=== PATIENT | female | born 1955 | race Caucasian/White ===

== ENCOUNTER 2022-09-04 11:38 | Emergency (ER) | payer OTHER ==
--- OUTSIDE RECORDS SUMMARY | 2022-09-04 11:42 | XMS REPORT | Continuity of Care Document ---
:1955 Author Organization [facility] t Address [address] [place] [address] [place] [id number] Care Team Providers Name Role Phone GUICHO JOE Primary Care Physician Unavailable EDWIN PALOMINO Attending Clinician Unavailable LUIS A CATES Attending Clinician Unavailable DEISY JUÁREZ Attending Clinician Unavailable 39, HOLTER Attending Clinician Unavailable YOEL HANNAH Attending Clinician Unavailable MD MATEUSZ Attending Clinician Unavailable LAB90 Attending Clinician Unavailable SHARRI CHAND Attending Clinician Unavailable LEONOR DOWNEY Attending Clinician Unavailable [facility] Attending Clinician Unavailable [facility]39 Attending Clinician Unavailable ISH PITTS Attending Clinician Unavailable MELANY PARDO Attending Clinician Unavailable Ferd SLAUGHTER-CEdwin Attending Clinician TAWANNA PETERSEN Attending Clinician Unavailable DELLA KUMAR Attending Clinician Unavailable Moira Marroquin PT Attending Clinician Unavailable Della Kumar MD Attending Clinician Swati Puri PTA Attending Clinician Unavailable Martha Villalba PTA Attending Clinician Unavailable ESTELLE LANCE Attending Clinician Unavailguerrero norton Payers Payer Name Policy Type Policy Number Effective Date Expiration Date S mariiamagdalena REY [employer] 7 [id number] 2021 00:00:00 PLAN HMO CIGNA 2 [id number] 2020 00:00:00 CIGNA II [id number] 2015 00:00:00 Problems Condition Condition Condition Status Onset Resolution Last Treating Co mments Source Name Details Category Date Date Treatment Clinician Date Well adult Well adult Disease Active K callie exam exam 1-18 Seybold 00:00: - 00 Externa l Anxiety Anxiety Disease Active Estelle 1-18 Seybold 00:00: - 00 Externa l Prediabete Prediabete Disease Active K miriamy s s 1-18 Seybold 00:00: - 00 Externa l PVD PVD Disease Active Estelle (periphera (periphera 1-18 Se ybold l vascular l vascular 00:00: - disease) disease) 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 l Bilateral Bilateral Disease Active 2021-02 Darrin sey leg leg 0-24 Seybold numbness numbness 00:00: - 00 Externa l Dermatitis Dermatitis Disease Active 2021-02 K elsey of both of both 0-24 Seybold ear canals ear canals 00:00: - 00 Externa l Chronic Chronic Disease Active [facility] bilateral bilateral 2-08 it[facility] of low back low back 00:00: [place] pain pain 00 [facility] Decreased Decreased Disease Active Uni vers strength strength 2-08 ity of of lower of lower 00:00: [place] extremity extremity 00 Medi corrine Branch Abdominal Abdominal Disease Active Uni vers weakness weakness 2-08 ity of 00:00: [place] 00 [facility] Right hip Right hip Disease Active 2020-02 Darrin sey pain pain 1-15 Seybold 00:00: - 00 Externa l Osteopenia Osteopenia Disease Active 2020-02 K elsey of spine of spine 0-25 Seybol d 00:00: - 00 Externa l Bone pain Bone pain Disease Active 2020-02 Darrin sey 0-25 Seybold 00:00: - 00 Externa l Nausea Nausea Disease Active 2020-02 Estelle 0-25 Seybold 00:00: - 00 Externa l B12 B12 Disease Active 2020-02 Estelle deficiency deficiency 0-25 Se ybold 00:00: - 00 Externa l Vitamin D Vitamin D Disease Active Darrin sey deficiency deficiency 9-27 Se ybold 00:00: - 00 Externa l GERD GERD Disease Active Estelle (gastroeso (gastroeso 9-24 Se ybold phageal phageal 00:00: - reflux reflux 00 Externa disease) disease) l IBS IBS Disease Active Estelle (irritable (irritable 11-19 Se ybold bowel bowel 00:00: - syndrome) syndrome) 00 Exte rna l Abnormal Abnormal Disease Active Kelse y mammogram mammogram 11-19 Seyb old 00:00: - 00 Externa l Migraine Migraine Disease Active Kelse y 11-19 Seybold 00:00: - 00 Externa l Degenerati Degenerati Disease Active Overview : Estelle ve disc ve disc 11-19 Formattin Vignesh ld disease at disease at 00:00: g of this - L5-S1 L5-S1 00 note Externa level level might be l different from the original. L5 Allergies, Adverse Reactions, Alerts Allergy Allergy Status Severity Reaction(s) Onset Inactive Treating Comm ents Source Name Type Date Date Clinician NO KNOWN Drug Active Univers ALLERGIE Class ity of S [facility] Social History Social Habit Start Date Stop Date Quantity Comments Source Exposure to Not sure Estelle de leon SARS-CoV-2 (event) History SDOH Estelle jackson - Alcohol Frequency Externa l History SDOH Estelle jackson - Alcohol Std External Drinks History SDOH Estelle jackson - Alcohol Binge External Alcohol intake 2022-04-05 2022-04-05 Estelle givens - 00:00:00 00:00:00 External Alcohol Comment 2022-03-15 2022-03-15 occasionally Estelle Jose - 00:00:00 00:00:00 External Education 2022-03-15 2022-03-15 13 Estelle Jose - 00:00:00 00:00:00 External Tobacco use and 2020-11-19 2020-11-19 Smokeless tobacco Ke jeremías Jose - exposure 00:00:00 00:00:00 non-user External Sex [birth year] [facility] 00[facility]00 00:00:00 [facility] Smoking Status Start Date Stop Date Source Never smoked tobacco Estelle addison - External Medications Ordered Filled Start Stop Current Ordering Indication Dosage Frequency Signature Comments Components Source Medication Medication Date Date Medication? Clinician (SIG) Name Name Celecoxib Yes [id number] 200mg Take 1 Estelle 200 MG oral 1-25 capsule Seybo ld Capsule 00:00: (200 mg - 00 total) by Externa mouth 2 l times daily Pantoprazol 2022-0 Yes [id number] 40mg QD Take 1 Estelle e Sodium 40 1-18 tablet (40 Se ybold MG oral 00:00: mg total) - Tablet 00 by mouth Externa Delayed daily as l Response needed buPROPion 2022-0 Yes [id number] 75mg Take 1 Ke lsey HCl 75 MG 1-18 tablet (75 Seyb old oral Tablet 00:00: mg total) - 00 by mouth Externa daily l Gabapentin 2022-0 Yes [id number] 200mg QD Take 2 Estelle 100 MG oral 1-18 capsules Seyb old Capsule 00:00: (200 mg - 00 total) by Externa mouth l nightly as needed Pantoprazol 2022-0 Yes [id number] 40mg QD Take 1 Estelle e Sodium 40 1-18 tablet (40 Se ybold MG oral 00:00: mg total) - Tablet 00 by mouth Externa Delayed daily as l Response needed buPROPion 2022-0 Yes [id number] 75mg Take 1 Ke lsey HCl 75 MG 1-18 tablet (75 Seyb old oral Tablet 00:00: mg total) - 00 by mouth Externa daily l Gabapentin 2022-0 Yes [id number] 200mg QD Take 2 Estelle 100 MG oral 1-18 capsules Seyb old Capsule 00:00: (200 mg - 00 total) by Externa mouth l nightly as needed Pantoprazol 2022-0 2022- No [id number] 40mg QD Take 1 Estelle e Sodium 40 1-18 01-18 tablet (40 S eybold MG oral 00:00: 00:00 mg total) - Tablet 00 :00 by mouth Externa Delayed daily as l Response needed Multiple 2022-0 2022- No Take by Kelse y Vitamins-Mi 1-06 26-05 mouth Seybol d nerals 10:28: 00:00 - (Womens 50+ 52 :00 Externa Multi l Vitamin/Min ) oral Tablet NALTREXONE 2022-0 2022- No 1.5mg Take 1.5 K elsey HCL OR 105 -05 mg by Seybold 10:28: 00:00 mouth - 43 :00 Externa l Gabapentin 2022- Yes [id number] 100mg QD Take 1 Estelle 100 MG oral 1-05 capsule Seybo ld Capsule 00:00: (100 mg - 00 total) by Externa mouth l nightly as needed Celecoxib Yes [id number] 200mg QD Take 1 Estelle 200 MG oral 1-05 capsule Seybo ld Capsule 00:00: (200 mg - 00 total) by Externa mouth l daily as needed for pain Celecoxib Yes [id number] 200mg QD Take 1 Estelle 200 MG oral 1-05 capsule Seybo ld Capsule 00:00: (200 mg - 00 total) by Externa mouth l daily as needed for pain Gabapentin 2022- No [id number] 100mg QD Take 1 Estelle 100 MG oral 1-05 -18 capsule Seyb old Capsule 00:00: 00:00 (100 mg - 00 :00 total) by Externa mouth l nightly as needed Celecoxib 2021-02- No [id number] TAKE 1 Estelle 200 MG oral 2-27 01-05 CAPSULE BY S eybold Capsule 00:00: 00:00 MOUTH - 00 :00 TWICE A Externa DAY l Multiple 2021-02 Yes Take by Estelle Vitamins-Mi 2-16 mouth Seybold nerals 14:38: - (Womens 50+ 21 Externa Multi l Vitamin/Min ) oral Tablet NALTREXONE 2021-02 Yes 1.5mg Take 1.5 Ke lsey HCL OR 2-16 mg by Seybold 14:38: mouth - 21 Externa l Pantoprazol 2021-02 Yes [id number] 40mg Take 1 Estelle e Sodium 40 2-05 tablet (40 Se ybold MG oral 00:00: mg total) - Tablet 00 by mouth Externa Delayed daily l Response Pantoprazol 2021-02 Yes [id number] 40mg Take 1 Estelle e Sodium 40 2-05 tablet (40 Se ybold MG oral 00:00: mg total) - Tablet 00 by mouth Externa Delayed daily l Response Pantoprazol 2021-02- No [id number] 40mg Take 1 Estelle e Sodium 40 2-05 -18 tablet (40 S eybold MG oral 00:00: 00:00 mg total) - Tablet 00 :00 by mouth Externa Delayed daily l Response Celecoxib 2021-02 Yes [id number] TAKE 1 K elsey 200 MG oral 1-18 CAPSULE BY Se ybold Capsule 00:00: MOUTH 2 - 00 TIMES Externa DAILY. l Nitrofurant 2021-02 Yes [id number] 100mg Take 1 Estelle oin Monohyd 1-10 capsule Seybo ld Macro 00:00: (100 mg - (Macrobid) 00 total) by Exte rna 100 MG oral mouth 2 l Capsule times daily Nitrofurant 2021-02- No [id number] 100mg Take 1 Estelle oin Monohyd 1-10 01-05 capsule Seyb old Macro 00:00: 00:00 (100 mg - (Macrobid) 00 :00 total) by Exte rna 100 MG oral mouth 2 l Capsule times daily Multiple 2021-02 Yes Take by Estelle Vitamins-Mi 1-09 mouth Seybold nerals 16:24: - (Womens 50+ 06 Externa Multi l Vitamin/Min ) oral Tablet NALTREXONE 2021-02 Yes 1.5mg Take 1.5 Ke lsey HCL OR 1-09 mg by Seybold 16:24: mouth - 06 Externa l Pantoprazol 2021-02 Yes [id number] 40mg Take 1 Estelle e Sodium 40 1-09 tablet (40 Se ybold MG oral 00:00: mg total) - Tablet 00 by mouth Externa Delayed daily l Response Dicyclomine 2021-02 Yes [id number] 20mg Take 1 Estelle HCl 20 MG 1-09 tablet (20 Seyb old oral Tablet 00:00: mg total) - 00 by mouth Externa every 6 l (six) hours Amitriptyli 2021-02 Yes [id number] 10mg Take 1 Estelle ne HCl 10 1-09 tablet (10 Seyb old MG oral 00:00: mg total) - Tablet 00 by mouth Externa at bedtime l Alprazolam 2021-02 Yes [id number] .25mg QD Take 1 Estelle 0.25 MG 1-09 tablet Seybold oral Tablet 00:00: (0.25 mg - 00 total) by Externa mouth l nightly as needed for sleep Dicyclomine 2021-02 Yes [id number] 20mg Take 1 Estelle HCl 20 MG 1-09 tablet (20 Seyb old oral Tablet 00:00: mg total) - 00 by mouth Externa every 6 l (six) hours Amitriptyli 2021-02 Yes [id number] 10mg Take 1 Estelle ne HCl 10 -09 tablet (10 Seyb old MG oral 00:00: mg total) - Tablet 00 by mouth Externa at bedtime l Alprazolam 2021-02 Yes [id number] .25mg QD Take 1 Estelle 0.25 MG -09 tablet Seybold oral Tablet 00:00: (0.25 mg - 00 total) by Externa mouth l nightly as needed for sleep Dicyclomine 2021-02 Yes [id number] 20mg Take 1 Estelle HCl 20 MG -09 tablet (20 Seyb old oral Tablet 00:00: mg total) - 00 by mouth Externa every 6 l (six) hours Dicyclomine 2021-02- No [id number] 20mg Take 1 Estelle HCl 20 MG -10 27-18 tablet (20 Sey bold oral Tablet 00:00: 00:00 mg total) - 00 :00 by mouth Externa every 6 l (six) hours Amitriptyli 2021-02- No [id number] 10mg Take 1 Estelle ne HCl 10 -10 27-05 tablet (10 Sey bold MG oral 00:00: 00:00 mg total) - Tablet 00 :00 by mouth Externa at bedtime l Alprazolam 2021-02- No [id number] .25mg QD Take 1 Estelle 0.25 MG -10 27-05 tablet Seybold oral Tablet 00:00: 00:00 (0.25 mg - 00 :00 total) by Externa mouth l nightly as needed for sleep Duloxetine 2021-02- No [id number] TAKE 1 Estelle HCl 30 MG 0-28 11-09 CAPSULE BY Sey bold oral Cap DR 00:00: 00:00 MOUTH - Particles 00 :00 EVERY DAY Exter na l Nystatin-Tr 2021-02 Yes [id number] Apply to Estelle iamcinolone 0-24 71400 area twice S eybold [id number] 00:00: daily as - UNIT/GM-% 00 needed. Externa apply l externally Cream Gabapentin 2021-02 Yes [id number] Start 1 Estelle 100 MG oral 0-24 cap po qhs Se ybold Capsule 00:00: x 7d, then - 00 1 cap bid Externa x7d , then l 1 cap tid Celecoxib 2021-02 Yes [id number] 200mg Take 1 Estelle (CeleBREX) 0-24 capsule Seybol d 200 MG oral 00:00: (200 mg - Capsule 00 total) by Externa mouth 2 l times daily NEOMYCIN-PO 2021-02 Yes [id number] 2[drp] Place 2 Estelle LYMYXIN-HC, 0-24 [id number] drops into S eybold OTIC, 1 % 00:00: both ears - otic 00 3 times Externa Solution daily For l 7-10 day Azelastine 2021-02 Yes [id number] 1{spray Use 1 Estelle HCl 0.1 % 0-24 } spray in Seybol d nasal 00:00: each - Solution 00 nostril 2 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 Externa MAY REPEAT l DOSE X 1 AFTER 1 HOUR. DO NOT EXCEED MORE THAN 2 TABLETS IN A 24-HOUR PERIOD Sumatriptan 2021-02 Yes [id number] TAKE 1 TAB Estelle Succinate 0-22 AT THE Seybold 100 MG oral 00:00: ONSET OF - Tablet 00 MIGRAINE. Externa MAY REPEAT l DOSE X 1 AFTER 1 HOUR. DO NOT EXCEED MORE THAN 2 TABLETS IN A 24-HOUR PERIOD Sumatriptan 2021-02 Yes [id number] TAKE 1 TAB Estelle Succinate 0-22 AT THE Seybold 100 MG oral 00:00: ONSET OF - Tablet 00 MIGRAINE. Externa MAY REPEAT l DOSE X 1 AFTER 1 HOUR. DO NOT EXCEED MORE THAN 2 TABLETS IN A 24-HOUR PERIOD Sumatriptan 2021-02 Yes [id number] TAKE 1 TAB Estelle Succinate 0-22 AT THE Seybold 100 MG oral 00:00: ONSET OF - Tablet 00 MIGRAINE. Externa MAY REPEAT l DOSE X 1 AFTER 1 HOUR. DO NOT EXCEED MORE THAN 2 TABLETS IN A 24-HOUR PERIOD Sumatriptan 2021-02 Yes [id number] TAKE 1 TAB Estelle Succinate 0-22 AT THE Seybold 100 MG oral 00:00: ONSET OF - Tablet 00 MIGRAINE. Externa MAY REPEAT l DOSE X 1 AFTER 1 HOUR. DO NOT EXCEED MORE THAN 2 TABLETS IN A 24-HOUR PERIOD Propranolol 2021-0 Yes [id number] 40mg Take 1 Estelle HCl 40 MG 9-20 tablet (40 Seyb old oral Tablet 00:00: mg total) - 00 by mouth 2 Externa times l daily Diclofenac 2021-0 Yes [id number] 75mg Take 1 Estelle Sodium 75 9-20 tablet (75 Seyb old MG oral 00:00: mg total) - Tablet 00 by mouth 2 Externa Delayed times l Response daily Famotidine 0 Yes [id number] 20mg Take 1 K elsey (PEPCID) 20 9-20 tablet (20 Se ybold MG oral 00:00: mg total) - tablet 00 by mouth 2 Externa times l daily Propranolol 2021-0 Yes [id number] 40mg Take 1 Estelle HCl 40 MG 9-20 tablet (40 Seyb old oral Tablet 00:00: mg total) - 00 by mouth 2 Externa times l daily Diclofenac 2021- Yes [id number] 75mg Take 1 Estelle Sodium 75 9-20 tablet (75 Seyb old MG oral 00:00: mg total) - Tablet 00 by mouth 2 Externa Delayed times l Response daily Famotidine 2021-0 Yes [id number] 20mg Take 1 K elsey (PEPCID) 20 9-20 tablet (20 Se ybold MG oral 00:00: mg total) - tablet 00 by mouth 2 Externa times l daily Propranolol 2021-0 Yes [id number] 40mg Take 1 Estelle HCl 40 MG 9-20 tablet (40 Seyb old oral Tablet 00:00: mg total) - 00 by mouth 2 Externa times l daily Famotidine 2021-0 Yes [id number] 20mg Take 1 K elsey (PEPCID) 20 9-20 tablet (20 Se ybold MG oral 00:00: mg total) - tablet 00 by mouth 2 Externa times l daily Propranolol 2021-0 Yes [id number] 40mg Take 1 Estelle HCl 40 MG 9-20 tablet (40 Seyb old oral Tablet 00:00: mg total) - 00 by mouth 2 Externa times l daily Propranolol 2021-0 Yes [id number] 40mg Take 1 Estelle HCl 40 MG 11-15 tablet (40 Seyb old oral Tablet 00:00: mg total) - 00 by mouth 2 Externa times l daily Famotidine 2022- No [id number] 20mg Take 1 Estelle (PEPCID) 20 11-15 tablet (20 S eybold MG oral 00:00: 00:00 mg total) - tablet 00 :00 by mouth 2 Externa times l daily Diclofenac 2022- No [id number] 75mg Take 1 Estelle Sodium 75 11-15 tablet (75 Sey bold MG oral 00:00: 00:00 mg total) - Tablet 00 :00 by mouth 2 Externa Delayed times l Response daily Cholecalcif Yes [id number] TAKE 1 Estelle alyssa 7-20 CAPSULE BY Rebeca (Vitamin 00:00: MOUTH ONE - D3) 1.25 MG 00 TIME PER Exte rna (25548 UT) WEEK l oral Capsule Cholecalcif Yes [id number] TAKE 1 Estelle alyssa 7-20 CAPSULE BY Rebeca (Vitamin 00:00: MOUTH ONE - D3) 1.25 MG 00 TIME PER Exte rna (32129 UT) WEEK l oral Capsule Cholecalcif 2022- No [id number] TAKE 1 Estelle alyssa -20 03-02 CAPSULE BY Rebeca (Vitamin 00:00: 00:00 MOUTH ONE - D3) 1.25 MG 00 :00 TIME PER Exte rna (80425 UT) WEEK l oral Capsule Ondansetron Yes [id number] 4mg Q.[id number] Take 1 Estelle (Zofran 7-15 [id number] tablet (4 S eybold ODT) 4 MG 00:00: 3D mg total) - oral TABLET 00 by mouth Exte rna DISPERSIBLE every 8 l hours as needed for nausea Ondansetron Yes [id number] 4mg Q.[id number] Take 1 Estelle (Zofran 7-15 [id number] tablet (4 S eybold ODT) 4 MG 00:00: 3D mg total) - oral TABLET 00 by mouth Exte rna DISPERSIBLE every 8 l hours as needed for nausea Ondansetron Yes [id number] 4mg Q.[id number] Take 1 Estelle (Zofran 7-15 [id number] tablet (4 S eybold ODT) 4 MG 00:00: 3D mg total) - oral TABLET 00 by mouth Exte rna DISPERSIBLE every 8 l hours as needed for nausea Ondansetron 2021-0 Yes [id number] 4mg Q.[id number] Take 1 Estelle (Zofran 7-15 [id number] tablet (4 S eybold ODT) 4 MG 00:00: 3D mg total) - oral TABLET 00 by mouth Exte rna DISPERSIBLE every 8 l hours as needed for nausea Ondansetron 2021-0 Yes [id number] 4mg Q.[id number] Take 1 Estelle (Zofran 7-15 [id number] tablet (4 S eybold ODT) 4 MG 00:00: 3D mg total) - oral TABLET 00 by mouth Exte rna DISPERSIBLE every 8 l hours as needed for nausea Metronidazo 2021-0 Yes [id number] 500mg Take 1 Estelle le 500 MG 7-06 tablet Seybold oral Tablet 00:00: (500 mg - 00 total) by Externa mouth 3 l times daily Cyclobenzap 2021-0 Yes [id number] 5mg Q.[id number] Take 1 Estelle rine HCl 5 7-06 [id number] tablet (5 Seybold MG oral 00:00: 3D mg total) - Tablet 00 by mouth 3 Externa times l daily as needed for muscle spasms buPROPion 2021-0 Yes [id number] 75mg Take 1 Ke lsey HCl 75 MG 7-06 tablet (75 Seyb old oral Tablet 00:00: mg total) - 00 by mouth Externa daily l Metronidazo 2021-0 Yes [id number] 500mg Take 1 Estelle le 500 MG 7-06 tablet Seybold oral Tablet 00:00: (500 mg - 00 total) by Externa mouth 3 l times daily Cyclobenzap 2021-0 Yes [id number] 5mg Q.[id number] Take 1 Estelle rine HCl 5 7-06 [id number] tablet (5 Seybold MG oral 00:00: 3D mg total) - Tablet 00 by mouth 3 Externa times l daily as needed for muscle spasms buPROPion 2022-0 Yes [id number] 75mg Take 1 Ke lsey HCl 75 MG - tablet (75 Seyb old oral Tablet 00:00: mg total) - 00 by mouth Externa daily l buPROPion Yes [id number] 75mg Take 1 Ke lsey HCl 75 MG 7-06 tablet (75 Seyb old oral Tablet 00:00: mg total) - 00 by mouth Externa daily l buPROPion 2022- No [id number] 75mg Take 1 K elsey HCl 75 MG 08-31 tablet (75 Sey bold oral Tablet 00:00: 00:00 mg total) - 00 :00 by mouth Externa daily l Metronidazo 2022- No [id number] 500mg Take 1 Estelle le 500 MG 08-31 tablet Seybold oral Tablet 00:00: 00:00 (500 mg - 00 :00 total) by Externa mouth 3 l times daily Cyclobenzap 2022- No [id number] 5mg Q.[id number] Take 1 Estelle rine HCl 5 08-31 [id number] tablet (5 Seybold MG oral 00:00: 00:00 3D mg total) - Tablet 00 :00 by mouth 3 Externa times l daily as needed for muscle spasms Methylpredn 2021- No [id number] 80mg K elsey isolone 03-28 Seybold Acetate 15:15: 15:25 (Depo-Medro 00 :00 l) 80 mg/ml - Physician Administere d (J1040) Methylpredn 2021- No [id number] 80mg 80 mg, Estelle isolone 03-28 Physician Seybol d Acetate 15:15: 15:25 Administer (Depo-Medro 00 :00 ed, ONCE, l) 80 mg/ml On Mon - Physician 03/28/21 at Administere 0915, For d (J1040) 1 dose Paroxetine Yes 20mg Take 20 mg K elsey HCl 20 MG 03-28 by mouth Seybol d oral Tablet 08:51: every 17 morning Gabapentin Yes 100mg Take 100 Ke lsey 100 MG oral 1-31 mg by Seybold Capsule 08:51: mouth 3 17 times daily Multiple Yes Take by Estelle Vitamins-Mi 1-31 mouth Seybold nerals 08:51: (Womens 50+ 17 Multi Vitamin/Min ) oral Tablet NALTREXONE Yes 1.5mg Take 1.5 Ke lsey HCL OR 1-31 mg by Seybold 08:51: mouth 17 Dicyclomine 0 Yes [id number] 20mg Take 1 Estelle HCl 20 MG 1-24 tablet (20 Seyb old oral Tablet 00:00: mg total) 00 by mouth every 6 (six) hours Dicyclomine 2021-0 2021- No [id number] 20mg Take 1 Estelle HCl 20 MG 1-24 11-09 tablet (20 Sey bold oral Tablet 00:00: 00:00 mg total) - 00 :00 by mouth Externa every 6 l (six) hours buPROPion Yes [id number] 75mg Take 1 Ke lsey HCl 75 MG 1-04 tablet (75 Seyb old oral Tablet 00:00: mg total) 00 by mouth daily Guaifenesin 2020-02 Yes 1200mg Take 2 Ke lsey (Mucinex) 2-21 tablets Seybold 600 MG oral 00:00: (1,200 mg Tablet 12 00 total) by Hour mouth 2 Sustained times Release daily Benzonatate 2020-02 Yes 100mg Q.[id number] Take 1 Estelle (Tessalon 2-21 [id number] capsule S lewis Daily) 100 00:00: 3D (100 mg MG oral 00 total) by Capsule mouth 3 times daily as needed for cough Cetirizine- 2020-02 Yes 1{tbl} Take 1 Ke lsey Pseudoephed 2-21 tablet by Sey bold rine 00:00: mouth 2 (ZyrTEC-D 00 times Allergy & daily Congestion) 5-120 MG oral Tablet 12 Hour Sustained Release guaiFENesin 2020-02 Yes [id number] 5mL Q.[id number] Take 5 mL Estelle -Codeine 2-21 [id number] by mouth 3 Seybold 100-10 00:00: 3D times MG/5ML oral 00 daily as Syrup needed for cough Cetirizine- 2020-02 Yes 1{tbl} Take 1 Ke lsey Pseudoephed 2-21 tablet by Sey bold rine 00:00: mouth 2 (ZyrTEC-D 00 times Allergy & daily Congestion) 5-120 MG oral Tablet 12 Hour Sustained Release Guaifenesin 2020-02- No 1200mg Take 2 K elsey (Mucinex) 04-18 tablets Seybol d 600 MG oral 00:00: 00:00 (1,200 mg Tablet 12 00 :00 total) by Hour mouth 2 Sustained times Release daily Benzonatate 2020-02- No 100mg Q.[id number] Take 1 Estelle (Tessalon 04-18 [id number] capsule Seybold Perles) 100 00:00: 00:00 3D (100 mg MG oral 00 :00 total) by Capsule mouth 3 times daily as needed for cough guaiFENesin 2020-02- No [id number] 5mL Q.[id number] Take 5 mL Estelle -Codeine 04-18 [id number] by mouth 3 Seybold 100-10 00:00: 00:00 3D times MG/5ML oral 00 :00 daily as Syrup needed for cough Azithromyci 2020-02- No Take 2 Darrin sey n 250 MG 04-18-27 tablets by Seyb old oral Tablet 00:00: 05:59 mouth on 00 :00 day 1 then 1 tablet by mouth daily for 4 days thereafter . Dicyclomine 2020-02 Yes [id number] TAKE 1 Estelle HCl 20 MG 2-16 TABLET BY Seybo ld oral Tablet 00:00: MOUTH 00 EVERY 6 HOURS Propranolol 2020-02 Yes [id number] 80mg TAKE 1 Estelle HCl CR 80 2-14 CAPSULE Seybold MG oral 00:00: (80 MG Capsule 24 00 TOTAL) BY Hour MOUTH Sustained DAILY FOR Release MIGRAINE PROPHYLAXI S Cholecalcif 2020-02 Yes [id number] TAKE 1 Estelle alyssa 2-14 CAPSULE BY Seybold (Vitamin 00:00: MOUTH ONE D3) 1.25 MG 00 TIME PER (49562 UT) WEEK oral Capsule Propranolol 2020-02 Yes [id number] 80mg TAKE 1 Estelle HCl CR 80 2-14 CAPSULE Seybold MG oral 00:00: (80 MG Capsule 24 00 TOTAL) BY Hour MOUTH Sustained DAILY FOR Release MIGRAINE PROPHYLAXI S Cholecalcif 2020-02 Yes [id number] TAKE 1 Estelle alyssa 2-14 CAPSULE BY Rebeca (Vitamin 00:00: MOUTH ONE D3) 1.25 MG 00 TIME PER (39105 UT) WEEK oral Capsule methylPREDN 2020-02 Yes [id number] 1{yael} Take 1 yael Diegoone 4 2-13 9102 by mouth Seybol d MG oral 00:00: See Admin Tablet 00 Instructio Therapy ns Use as Pack directed Capsaicin-L 2020-02 Yes [id number] 1{patch Apply 1 Estelle idocaine-Me 2-13 } patch Seybold nthol 00:00: topically 0.0375-1-5 00 daily % apply externally Patch Capsaicin 2020-02 Yes [id number] 1{patch Apply 1 Estelle 0.025 % 2-13 } patch Seybold apply 00:00: topically externally 00 daily Patch Capsaicin-L 2020-02 Yes [id number] 1{patch Apply 1 Estelle idocaine-Me 2-13 } patch Seybold nthol 00:00: topically 0.0375-1-5 00 daily % apply externally Patch Capsaicin 2020-02 Yes [id number] 1{patch Apply 1 Estelle 0.025 % 2-13 } patch Seybold apply 00:00: topically externally 00 daily Patch methylPREDN 2020-02- No [id number] 1{yael} Take 1 yael Diegoone 4 2-13 01-31 9102 by mouth Seybo ld MG oral 00:00: 00:00 See Admin Tablet 00 :00 Instructio Therapy ns Use as Pack directed Paroxetine 2020-02 Yes 20mg Take 20 mg K elsey HCl 20 MG 1-15 by mouth Seybol d oral Tablet 10:52: every 42 morning Gabapentin 2020-02 Yes 100mg Take 100 Ke lsey 100 MG oral 1-15 mg by Seybold Capsule 10:52: mouth 3 42 times daily Multiple 2020-02 Yes Take by Estelle Vitamins-Mi 1-15 mouth Seybold nerals 10:52: (Womens 50+ 42 Multi Vitamin/Min ) oral Tablet Paroxetine 2020-02 Yes 20mg Take 20 mg K elsey HCl 20 MG 1-15 by mouth Seybol d oral Tablet 10:52: every 42 morning Gabapentin 2020-02 Yes 100mg Take 100 Ke lsey 100 MG oral 1-15 mg by Seybold Capsule 10:52: mouth 3 42 times daily Multiple 2020-02 Yes Take by Estelle Vitamins-Mi 1-15 mouth Seybold nerals 10:52: (Womens 50+ 42 Multi Vitamin/Min ) oral Tablet Celecoxib 2020-02 Yes [id number] 200mg Take 1 K elsey (CeleBREX) 1-15 capsule Seybol d 200 MG oral 00:00: (200 mg Capsule 00 total) by mouth 2 times daily Famotidine 2020-02 Yes [id number] 20mg Take 1 K elsey (PEPCID) 20 1-15 tablet (20 Se ybold MG oral 00:00: mg total) tablet 00 by mouth 2 times daily Nitrofurant 2020-02 Yes [id number] 100mg Take 1 Estelle oin Monohyd 1-15 capsule Seybo ld Macro 00:00: (100 mg (Macrobid) 00 total) by 100 MG oral mouth 2 Capsule times daily Celecoxib 2020-02 Yes [id number] 200mg Take 1 K elsey (CeleBREX) 1-15 capsule Seybol d 200 MG oral 00:00: (200 mg Capsule 00 total) by mouth 2 times daily Famotidine 2020-02 Yes [id number] 20mg Take 1 K elsey (PEPCID) 20 1-15 tablet (20 Se ybold MG oral 00:00: mg total) tablet 00 by mouth 2 times daily Nitrofurant 2020-02 Yes [id number] 100mg Take 1 Estelle oin Monohyd 1-15 capsule Seybo ld Macro 00:00: (100 mg (Macrobid) 00 total) by 100 MG oral mouth 2 Capsule times daily Celecoxib 2020-02 Yes [id number] 200mg Take 1 K elsey (CeleBREX) 1-15 capsule Seybol d 200 MG oral 00:00: (200 mg Capsule 00 total) by mouth 2 times daily Famotidine 2020-02 Yes [id number] 20mg Take 1 K elsey (PEPCID) 20 1-15 tablet (20 Se ybold MG oral 00:00: mg total) tablet 00 by mouth 2 times daily Nitrofurant 2020-02- No [id number] 100mg Take 1 Estelle oin Monohyd 1-15 01-31 capsule Seyb old Macro 00:00: 00:00 (100 mg (Macrobid) 00 :00 total) by 100 MG oral mouth 2 Capsule times daily Cholecalcif 2020-02 Yes [id number] 17176D Take 1 Estelle alyssa 1.25 0-29 capsule Seybold MG ([id number] 00:00: (50,000 UT) oral 00 units Capsule total) by mouth once a week buPROPion 2020-02 Yes [id number] 75mg Take 1 Ke lsey HCl 75 MG 0-27 tablet (75 Seyb old oral Tablet 00:00: mg total) 00 by mouth daily buPROPion 2020-02 Yes [id number] 75mg Take 1 Ke lsey HCl 75 MG 0-27 tablet (75 Seyb old oral Tablet 00:00: mg total) 00 by mouth daily Sumatriptan 2020-02 100mg Take 100 Estelle Succinate 0-25 10-25 mg by Seybold 100 MG oral 10:30: 00:00 mouth Tablet 25 :00 every 2 hours as needed for migraine Paroxetine 2020-02 Yes 20mg Take 20 mg K elsey HCl 20 MG 0-25 by mouth Seybol d oral Tablet 09:42: every 07 morning Gabapentin 2020-02 Yes 100mg Take 100 Ke lsey 100 MG oral 0-25 mg by Seybold Capsule 09:42: mouth 3 07 times daily Multiple 2020-02 Yes Take by Estelle Vitamins-Mi 0-25 mouth Seybold nerals 09:42: (Womens 50+ 07 Multi Vitamin/Min ) oral Tablet Sumatriptan 2020-02 Yes [id number] 100mg Take 1 Estelle Succinate 0-25 tablet Seybold 100 MG oral 00:00: (100 mg Tablet 00 total) by mouth every 2 hours as needed for migraine Do not take more than 2 tabs in a 24 hrs period Sumatriptan 2020-02 Yes [id number] 100mg Take 1 Estelle Succinate 0-25 tablet Seybold 100 MG oral 00:00: (100 mg Tablet 00 total) by mouth every 2 hours as needed for migraine Do not take more than 2 tabs in a 24 hrs period Sumatriptan 2020-02 Yes [id number] 100mg Take 1 Estelle Succinate 0-25 tablet Seybold 100 MG oral 00:00: (100 mg Tablet 00 total) by mouth every 2 hours as needed for migraine Do not take more than 2 tabs in a 24 hrs period Dicyclomine 2020-02 Yes [id number] 20mg Take 1 Estelle HCl 20 MG 0-25 tablet (20 Seyb old oral Tablet 00:00: mg total) 00 by mouth every 6 (six) hours Sumatriptan 2020-02 Yes [id number] 100mg Take 1 Estelle Succinate 0-25 tablet Seybold 100 MG oral 00:00: (100 mg Tablet 00 total) by mouth every 2 hours as needed for migraine Do not take more than 2 tabs in a 24 hrs period Dicyclomine 2020-02 Yes [id number] 20mg Take 1 Estelle HCl 20 MG 0-25 tablet (20 Seyb old oral Tablet 00:00: mg total) 00 by mouth every 6 (six) hours buPROPion 2020-02 Yes [id number] 75mg Take 1 Ke lsey HCl 75 MG 0-04 tablet (75 Seyb old oral Tablet 00:00: mg total) 00 by mouth daily Cholecalcif 2021-0 Yes [id number] 25U Take 25 Estelle alyssa 9-28 units by Seybold (Vitamin D) 00:00: mouth 25 MCG 00 daily (1000 UT) oral Tablet Cholecalcif 2021-0 Yes [id number] 25U Take 25 Estelle alyssa 9-28 units by Seybold (Vitamin D) 00:00: mouth 25 MCG 00 daily (1000 UT) oral Tablet Cholecalcif 2021-0 Yes [id number] 25U Take 25 Estelle alyssa 9-28 units by Seybold (Vitamin D) 00:00: mouth - 25 MCG 00 daily Externa (1000 UT) l oral Tablet Cholecalcif 2021-0 Yes [id number] 25U Take 25 Estelle alyssa 9-28 units by Seybold (Vitamin D) 00:00: mouth - 25 MCG 00 daily Externa (1000 UT) l oral Tablet Cholecalcif 2021-0 Yes [id number] 25U Take 25 Estelle alyssa 9-28 units by Seybold (Vitamin D) 00:00: mouth 25 MCG 00 daily (1000 UT) oral Tablet Cholecalcif 2021-0 Yes [id number] 25U Take 25 Estelle alyssa 9-28 units by Seybold (Vitamin D) 00:00: mouth 25 MCG 00 daily (1000 UT) oral Tablet Cholecalcif 2020-0 2022- No [id number] 25U Take 25 Estelle alyssa 9-28 01-05 units by Seybold (Vitamin D) 00:00: 00:00 mouth - 25 MCG 00 :00 daily Externa (1000 UT) l oral Tablet Propranolol 2020-0 2020- No 10mg Take 10 mg Estelle HCl 10 MG 9-24 -24 by mouth Seybo ld oral Tablet 08:52: 00:00 daily 05 :00 Paroxetine 2020-0 Yes 20mg Take 20 mg K elsey HCl 20 MG 9-24 by mouth Seybol d oral Tablet 08:03: every 11 morning Gabapentin 2020-0 Yes 100mg Take 100 Ke lsey 100 MG oral 9-24 mg by Seybold Capsule 08:03: mouth 3 11 times daily Sumatriptan 2020-0 Yes 100mg Take 100 K elsey Succinate 9-24 mg by Seybold 100 MG oral 08:03: mouth Tablet 11 every 2 hours as needed for migraine Multiple Yes Take by Estelle Vitamins-Mi 9-24 mouth Seybold nerals 08:03: (Womens 50+ 11 Multi Vitamin/Min ) oral Tablet Bupropion 0 Yes [id number] 150mg Take 1 Estelle HCL XL 150 9-24 tablet Seybold MG OR TB24 00:00: (150 mg 00 total) by mouth daily Propranolol 2020-0 Yes [id number] 80mg Take 1 Estelle HCl CR 80 9-24 capsule Seybold MG oral 00:00: (80 mg Capsule 24 total) by Hour mouth Sustained daily For Release migraine prophylaxi s Propranolol 2020-0 Yes [id number] 80mg Take 1 Estelle HCl CR 80 9-24 capsule Seybold MG oral 00:00: (80 mg Capsule 24 00 total) by Hour mouth Sustained daily For Release migraine prophylaxi s Propranolol 2020-0 Yes [id number] 80mg Take 1 Estelle HCl CR 80 9-24 capsule Seybold MG oral 00:00: (80 mg Capsule 24 00 total) by Hour mouth Sustained daily For Release migraine prophylaxi s Cefuroxime 2020-0 2020- No 250mg Take 250 K elsey Axetil 250 7-29 09-24 mg by Seybold MG oral 00:00: 00:00 mouth 2 Tablet 00 :00 times daily multivitami 2016- Yes 1{tbl} Take 1 Un toya n, 7-12 tablet by ity of tx-minerals 09:13: mouth [place] (COMPLETE 55 daily. Medical MULTIVITAMI Branch N) tablet propranolol 2016 Yes 10mg Take 10 mg [facility] (INDERAL) 7-12 by mouth ity of 10 mg 09:13: daily. [place] tablet 55 Medical Branch spironolact 2016 Yes 50mg Take 50 mg [facility] one 7-12 by mouth ity of (ALDACTONE) 09:13: [place]. [place] 50 mg 55 Medical tablet Branch esomeprazol Yes 40mg Take 40 mg Univers e (NEXIUM) 7-12 by mouth ity o f 40 mg 09:13: as needed. [place] capsule 55 Medical Branch cetirizine Yes 10mg Take 10 mg U nivers (ZYRTEC) 10 7-12 by mouth ity of mg tablet 09:13: as needed Fredrick as 55 for Medical Allergies. Branch azelastine Yes 1{spray Use 1 Uni vers (ASTELIN) 7-12 } [place] in ity of 137 mcg 09:13: each [place] (0.1 %) 55 nostril as Medica l nasal spray needed for Br anch Runny nose. Use in each nostril as directed fluticasone Yes 1{spray Use 1 Un toya 50 7-12 } [place] in ity of mcg/actuati 09:13: each [place] on nasal 55 nostril as Medic al spray needed. Branch SUMAtriptan Yes 25mg Take 25 mg Univers (IMITREX) 7-12 by mouth ity of 25 mg 09:13: as needed [place] tablet 55 for Medical Migraine. Branch multivitami 2016 Yes 1{tbl} Take 1 Un toya n, 7-12 tablet by ity of tx-minerals 09:13: mouth [place] (COMPLETE 55 daily. Medical MULTIVITAMI Branch N) tablet propranolol 2016 Yes 10mg Take 10 mg [facility] (INDERAL) 7-12 by mouth ity of 10 mg 09:13: daily. [place] tablet 55 Medical Branch spironolact 2016-0 Yes 50mg Take 50 mg [facility] one 7-12 by mouth ity of (ALDACTONE) 09:13: daily. [place] 50 mg 55 Medical tablet Branch esomeprazol Yes 40mg Take 40 mg Univers e (NEXIUM) 7-12 by mouth ity o f 40 mg 09:13: as needed. [place] capsule 55 Medical Branch cetirizine Yes 10mg Take 10 mg U nivers (ZYRTEC) 10 7-12 by mouth ity of mg tablet 09:13: as needed Fredrick as 55 for Medical Allergies. Branch azelastine Yes 1{spray Use 1 Uni vers (ASTELIN) 7-12 } [place] in ity of 137 mcg 09:13: each [place] (0.1 %) 55 nostril as Medica l nasal spray needed for Br anch Runny nose. Use in each nostril as directed fluticasone Yes 1{spray Use 1 Un toya 50 7-12 } [place] in ity of mcg/actuati 09:13: each [place] on nasal 55 nostril as Medic al spray needed. Branch SUMAtriptan Yes 25mg Take 25 mg [facility] (IMITREX) 7-12 by mouth ity of 25 mg 09:13: as needed [place] tablet 55 for Medical Migraine. Branch multivitami Yes 1{tbl} Take 1 Un toya n, 7-12 tablet by ity of tx-minerals 09:13: mouth [place] (COMPLETE 55 daily. Medical MULTIVITAMI Branch N) tablet propranolol 2016 Yes 10mg Take 10 mg [facility] (INDERAL) 7-12 by mouth ity of 10 mg 09:13: daily. [place] tablet 55 Medical Branch spironolact [id number] Yes 50mg Take 50 mg [facility] one 7-12 by mouth ity of (ALDACTONE) 09:13: daily. [place] 50 mg 55 Medical tablet Branch esomeprazol [id number] Yes 40mg Take 40 mg Univers e (NEXIUM) 7-12 by mouth ity o f 40 mg 09:13: as needed. [place] capsule 55 Medical Branch cetirizine 0 Yes 10mg Take 10 mg U nivers (ZYRTEC) 10 7-12 by mouth ity of mg tablet 09:13: as needed [place] as 55 for Medical Allergies. Branch azelastine Yes 1{spray Use 1 Uni vers (ASTELIN) 7-12 } [place] in ity of 137 mcg 09:13: each [place] (0.1 %) 55 nostril as Medica l nasal spray needed for Br anch Runny nose. Use in each nostril as directed fluticasone Yes 1{spray Use 1 Un toya 50 7-12 } [place] in ity of mcg/actuati 09:13: each [place] on nasal 55 nostril as Medic al spray needed. Branch SUMAtriptan 2016 Yes 25mg Take 25 mg [facility] (IMITREX) 7-12 by mouth ity of 25 mg 09:13: as needed [place] tablet 55 for Medical Migraine. Branch multivitami 2016 Yes 1{tbl} Take 1 Un toya n, 7-12 tablet by ity of tx-minerals 09:13: mouth [place] (COMPLETE 55 daily. Medical MULTIVITAMI Branch N) tablet propranolol 2016 Yes 10mg Take 10 mg [facility] (INDERAL) 7-12 by mouth ity of 10 mg 09:13: daily. [place] tablet 55 Medical Branch spironolact 2016 Yes 50mg Take 50 mg [facility] one 7-12 by mouth ity of (ALDACTONE) 09:13: daily. [place] 50 mg 55 Medical tablet Branch esomeprazol Yes 40mg Take 40 mg Univers e (NEXIUM) 7-12 by mouth ity o f 40 mg 09:13: as needed. [place] capsule 55 Medical Branch cetirizine Yes 10mg Take 10 mg U nivers (ZYRTEC) 10 7-12 by mouth ity of mg tablet 09:13: as needed [place] as 55 for Medical Allergies. Branch azelastine Yes 1{spray Use 1 Uni vers (ASTELIN) 7-12 } [place] in ity of 137 mcg 09:13: each [place] (0.1 %) 55 nostril as Medica l nasal spray needed for Br anch Runny nose. Use in each nostril as directed fluticasone Yes 1{spray Use 1 Un toya 50 7-12 } [place] in ity of mcg/actuati 09:13: each [place] on nasal 55 nostril as Medic al spray needed. Branch SUMAtriptan Yes 25mg Take 25 mg Univers (IMITREX) 7-12 by mouth ity of 25 mg 09:13: as needed [place] tablet 55 for Medical Migraine. Branch multivitami 2016- Yes 1{tbl} Take 1 Un toya n, 7-12 tablet by ity of tx-minerals 09:13: mouth [place] (COMPLETE 55 daily. Medical MULTIVITAMI Branch N) tablet propranolol 2016-0 Yes 10mg Take 10 mg [facility] (INDERAL) 7-12 by mouth ity of 10 mg 09:13: daily. [place] tablet 55 Medical Branch spironolact 2016-0 Yes 50mg Take 50 mg [facility] one 7-12 by mouth ity of (ALDACTONE) 09:13: daily. [place] 50 mg 55 Medical tablet Branch esomeprazol Yes 40mg Take 40 mg Univers e (NEXIUM) 7-12 by mouth ity o f 40 mg 09:13: as needed. [place] capsule 55 Medical Branch cetirizine Yes 10mg Take 10 mg U nivers (ZYRTEC) 10 7-12 by mouth ity of mg tablet 09:13: as needed [place] as 55 for Medical Allergies. Branch azelastine Yes 1{spray Use 1 Uni vers (ASTELIN) 7-12 } [place] in ity of 137 mcg 09:13: each [place] (0.1 %) 55 nostril as Medica l nasal spray needed for Br anch Runny nose. Use in each nostril as directed fluticasone Yes 1{spray Use 1 Un toya 50 7-12 } [place] in ity of mcg/actuati 09:13: each [place] on nasal 55 nostril as Medic al spray needed. Branch SUMAtriptan 2016- Yes 25mg Take 25 mg [facility] (IMITREX) 7-12 by mouth ity of 25 mg 09:13: as needed [place] tablet 55 for Medical Migraine. Branch multivitami 2016- Yes 1{tbl} Take 1 Un toya n, 7-12 tablet by ity of tx-minerals 09:13: mouth [place] (COMPLETE 55 daily. Medical MULTIVITAMI Branch N) tablet propranolol 2016-0 Yes 10mg Take 10 mg [facility] (INDERAL) 7-12 by mouth ity of 10 mg 09:13: daily. [place] tablet 55 Medical Branch spironolact 2016-0 Yes 50mg Take 50 mg [facility] one 7-12 by mouth ity of (ALDACTONE) 09:13: daily. [place] 50 mg 55 Medical tablet Branch esomeprazol Yes 40mg Take 40 mg Univers e (NEXIUM) 7-12 by mouth ity o f 40 mg 09:13: as needed. [place] capsule 55 Medical Branch cetirizine Yes 10mg Take 10 mg U nivers (ZYRTEC) 10 7-12 by mouth ity of mg tablet 09:13: as needed [place] as 55 for Medical Allergies. Branch azelastine Yes 1{spray Use 1 Uni vers (ASTELIN) 7-12 } [place] in ity of 137 mcg 09:13: each [place] (0.1 %) 55 nostril as Medica l nasal spray needed for Br anch Runny nose. Use in each nostril as directed fluticasone Yes 1{spray Use 1 Un toya 50 7-12 } [place] in ity of mcg/actuati 09:13: each [place] on nasal 55 nostril as Medic al spray needed. Branch SUMAtriptan Yes 25mg Take 25 mg Univers (IMITREX) 7-12 by mouth ity of 25 mg 09:13: as needed [place] tablet 55 for Medical Migraine. Branch multivitami Yes 1{tbl} Take 1 Un toya n, 7-12 tablet by ity of tx-minerals 09:13: mouth [place] (COMPLETE 55 daily. Medical MULTIVITAMI Branch N) tablet propranolol 2016 Yes 10mg Take 10 mg [facility] (INDERAL) 7-12 by mouth ity of 10 mg 09:13: daily. [place] tablet 55 Medical Branch spironolact [id number] Yes 50mg Take 50 mg [facility] one 7-12 by mouth ity of (ALDACTONE) 09:13: daily. [place] 50 mg 55 Medical tablet Branch esomeprazol 20160 Yes 40mg Take 40 mg Univers e (NEXIUM) 7-12 by mouth ity o f 40 mg 09:13: as needed. [place] capsule 55 Medical Branch cetirizine Yes 10mg Take 10 mg U nivers (ZYRTEC) 10 7-12 by mouth ity of mg tablet 09:13: as needed [place] as 55 for Medical Allergies. Branch azelastine Yes 1{spray Use 1 Uni vers (ASTELIN) 7-12 } [place] in ity of 137 mcg 09:13: each [place] (0.1 %) 55 nostril as Medica l nasal spray needed for Br anch Runny nose. Use in each nostril as directed fluticasone 2016- Yes 1{spray Use 1 Un toya 50 7-12 } [place] in ity of mcg/actuati 09:13: each [place] on nasal 55 nostril as Medic al spray needed. Branch SUMAtriptan 2016 Yes 25mg Take 25 mg Univers (IMITREX) 7-12 by mouth ity of 25 mg 09:13: as needed [place] tablet 55 for Medical Migraine. Branch multivitami 2016 Yes 1{tbl} Take 1 Un toya n, 7-12 tablet by ity of tx-minerals 09:13: mouth [place] (COMPLETE 55 daily. Medical MULTIVITAMI Branch N) tablet propranolol 2016- Yes 10mg Take 10 mg [facility] (INDERAL) 7-12 by mouth ity of 10 mg 09:13: daily. [place] tablet 55 Medical Branch spironolact 20160 Yes 50mg Take 50 mg [facility] one 7-12 by mouth ity of (ALDACTONE) 09:13: daily. [place] 50 mg 55 Medical tablet Branch esomeprazol 0 Yes 40mg Take 40 mg Univers e (NEXIUM) 7-12 by mouth ity o f 40 mg 09:13: as needed. [place] capsule 55 Medical Branch cetirizine 20160 Yes 10mg Take 10 mg U nivers (ZYRTEC) 10 7-12 by mouth ity of mg tablet 09:13: as needed [place] as 55 for Medical Allergies. Branch azelastine 2016- Yes 1{spray Use 1 Uni vers (ASTELIN) 7-12 } [place] in ity of 137 mcg 09:13: each [place] (0.1 %) 55 nostril as Medica l nasal spray needed for Br anch Runny nose. Use in each nostril as directed fluticasone 2016- Yes 1{spray Use 1 Un toya 50 7-12 } [place] in ity of mcg/actuati 09:13: each [place] on nasal 55 nostril as Medic al spray needed. Branch SUMAtriptan 2016-0 Yes 25mg Take 25 mg Univers (IMITREX) 7-12 by mouth ity of 25 mg 09:13: as needed [place] tablet 55 for Medical Migraine. Branch multivitami 2016 Yes 1{tbl} Take 1 Un toya n, 7-12 tablet by ity of tx-minerals 09:13: mouth [place] (COMPLETE 55 daily. Medical MULTIVITAMI Branch N) tablet propranolol 2016 Yes 10mg Take 10 mg [facility] (INDERAL) 7-12 by mouth ity of 10 mg 09:13: daily. [place] tablet 55 Medical Branch spironolact 2016 Yes 50mg Take 50 mg [facility] one 7-12 by mouth ity of (ALDACTONE) 09:13: daily. [place] 50 mg 55 Medical tablet Branch esomeprazol Yes 40mg Take 40 mg Univers e (NEXIUM) 7-12 by mouth ity o f 40 mg 09:13: as needed. [place] capsule 55 Medical Branch cetirizine Yes 10mg Take 10 mg U nivers (ZYRTEC) 10 7-12 by mouth ity of mg tablet 09:13: as needed [place] as 55 for Medical Allergies. Branch azelastine Yes 1{spray Use 1 Uni vers (ASTELIN) 7-12 } [place] in ity of 137 mcg 09:13: each [place] (0.1 %) 55 nostril as Medica l nasal spray needed for Br anch Runny nose. Use in each nostril as directed fluticasone Yes 1{spray Use 1 Un toya 50 7-12 } [place] in ity of mcg/actuati 09:13: each [place] on nasal 55 nostril as Medic al spray needed. Branch SUMAtriptan Yes 25mg Take 25 mg [facility] (IMITREX) 7-12 by mouth ity of 25 mg 09:13: as needed [place] tablet 55 for Medical Migraine. Branch Immunizations Ordered Immunization Filled Immunization Date Status Commen ts Source Name Name Influenza Virus 2021-11-18 Completed Estelle oliver Vaccine, 00:00:00 - External Quadrivalent, High Dose, Age 65 And Up Pneumococcal 2021-11-18 Completed Estelle Medellin ld Vaccine, Conjugate 00:00:00 - Exte rnal 20 Influenza Virus 2021-11-18 Completed Estelle Se ybold Vaccine, 00:00:00 - External Quadrivalent, High Dose, Age 65 And Up Pneumococcal 2021-11-18 Completed Estelle Seybo ld Vaccine, Conjugate 00:00:00 - Exte rnal 20 Influenza Virus 2021-11-18 Completed Estelle Se ybold Vaccine, 00:00:00 - External Quadrivalent, High Dose, Age 65 And Up Pneumococcal 2021-11-18 Completed Estelle Seybo ld Vaccine, Conjugate 00:00:00 - Exte rnal 20 Influenza Virus 2021-11-18 Completed Estelle Se ybold Vaccine, 00:00:00 - External Quadrivalent, High Dose, Age 65 And Up Pneumococcal 2021-11-18 Completed Estelle Seybo ld Vaccine, Conjugate 00:00:00 - Exte rnal 20 Influenza Virus 2021-11-18 Completed Estelle Se ybold Vaccine, 00:00:00 - External Quadrivalent, High Dose, Age 65 And Up Pneumococcal 2021-11-18 Completed Estelle Seybo ld Vaccine, Conjugate 00:00:00 - Exte rnal 20 Shingles IM 2021-03-18 Completed Estelle Seybol d (Shingrix) 00:00:00 Shingles IM 2021-03-18 Completed Estelle Seybol d (Shingrix) 00:00:00 - External Shingles IM 2021-03-18 Completed Estelle Seybol d (Shingrix) 00:00:00 - External Shingles IM 2021-03-18 Completed Estelle Seybol d (Shingrix) 00:00:00 - External Shingles IM 2021-03-18 Completed Estelle Seybol d (Shingrix) 00:00:00 - External Shingles IM 2021-03-18 Completed Estelle Seybol d (Shingrix) 00:00:00 - External Pneumococcal 2020-11-18 Completed Estelle Seybo ld Vaccine, Conjugate 00:00:00 13 Pneumococcal 2020-11-18 Completed Estelle Seybo ld Vaccine, Conjugate 00:00:00 13 Pneumococcal 2020-11-18 Completed Setelle Seybo ld Vaccine, Conjugate 00:00:00 13 Pneumococcal 2020-11-18 Completed Estelle Seybo ld Vaccine, Conjugate 00:00:00 - Exte rnal 13 Pneumococcal 2020-11-18 Completed Estelle Seybo ld Vaccine, Conjugate 00:00:00 - Exte rnal 13 Pneumococcal 2020-11-18 Completed Estelle Seybo ld Vaccine, Conjugate 00:00:00 - Exte rnal 13 Pneumococcal 2020-11-18 Completed Estelle Seybo ld Vaccine, Conjugate 00:00:00 - Exte rnal 13 Pneumococcal 2020-11-18 Completed Estelle Seybo ld Vaccine, Conjugate 00:00:00 13 Pneumococcal 2020-11-18 Completed Estelle Seybo ld Vaccine, Conjugate 00:00:00 - Exte rnal 13 Pneumococcal 2020-11-18 Completed Estelle Seybo ld Vaccine, Conjugate 00:00:00 13 Shingles IM 2020-11-16 Completed Estelle Seybol d (Shingrix) 00:00:00 Shingles IM 2020-11-16 Completed Estelle Seybol d (Shingrix) 00:00:00 Shingles IM 2020-11-16 Completed Estelle Seybol d (Shingrix) 00:00:00 Shingles IM 2020-11-16 Completed Estlele Seybol d (Shingrix) 00:00:00 - External Shingles IM 2020-11-16 Completed Estelle Seybol d (Shingrix) 00:00:00 - External Shingles IM 2020-11-16 Completed Estelle Seybol d (Shingrix) 00:00:00 - External Shingles IM 2020-11-16 Completed Estelle Seybol d (Shingrix) 00:00:00 - External Shingles IM 2020-11-16 Completed Estelle Seybol d (Shingrix) 00:00:00 - External Shingles IM 2020-11-16 Completed Estelle Seybol d (Shingrix) 00:00:00 Vital Signs Vital Name Observation Time Observation Value Comments Source Systolic blood 2022-04-05 18:51:00 120 mm[Hg] Estelle Carvajalold - pressure External Diastolic blood 2022-04-05 18:51:00 81 mm[Hg] Porsche Jose - pressure External Heart rate 2022-04-05 18:51:00 87 /min Estelle S eybold - External Body temperature 2022-04-05 18:51:00 36.61 Janice Dara ey Seybold - External Respiratory rate 2022-04-05 18:51:00 14 /min Dara ey Seybold - External Body height 2022-04-05 18:51:00 165.1 cm Estelle S eybold - External Body weight 2022-04-05 18:51:00 69.854 kg Estelle S eybold - External BMI 2022-04-05 18:51:00 25.63 kg/m2 Estelle S eybold - External Oxygen saturation in 2022-04-05 18:51:00 99 /min Estelle Seybold - Arterial blood by External Pulse oximetry Systolic blood 2022-03-15 19:34:00 112 mm[Hg] Estelle Seybold - pressure External Diastolic blood 2022-03-15 19:34:00 67 mm[Hg] Kelse y Seybold - pressure External Heart rate 2022-03-15 19:34:00 55 /min Estelle Dupont eybold - External Body temperature 2022-03-15 19:34:00 36.56 Janice Dara ey Seybold - External Respiratory rate 2022-03-15 19:34:00 14 /min Dara maloney Seybold - External Body height 2022-03-15 19:34:00 165.1 cm Estelle Dupont eybold - External Body weight 2022-03-15 19:34:00 70.126 kg Estelle Dupont eybold - External BMI 2022-03-15 19:34:00 25.73 kg/m2 Estelle S eybold - External Oxygen saturation in 2022-03-15 19:34:00 100 /min Estelle Seybold - Arterial blood by External Pulse oximetry Systolic blood 2022-02-10 20:38:00 102 mm[Hg] Estelle Seybold - pressure External Diastolic blood 2022-02-10 20:38:00 69 mm[Hg] Kelse y Seybold - pressure External Heart rate 2022-02-10 20:38:00 70 /min Estelle S eybold - External Body temperature 2022-02-10 20:38:00 36.44 Janiec Dara ey Seybold - External Respiratory rate 2022-02-10 20:38:00 18 /min Dara ey Seybold - External Body height 2022-02-10 20:38:00 165.1 cm Estelle S eybold - External Body weight 2022-02-10 20:38:00 66.679 kg Estelle S eybold - External BMI 2022-02-10 20:38:00 24.46 kg/m2 Estelle S eybold - External Systolic blood 2022-01-04 22:20:00 112 mm[Hg] Estelle Seybold - pressure External Diastolic blood 2022-01-04 22:20:00 60 mm[Hg] Kelse y Seybold - pressure External Heart rate 2022-01-04 22:20:00 75 /min Estelle S eybold - External Body temperature 2022-01-04 22:20:00 36.56 Janice Dara ey Seybold - External Respiratory rate 2022-01-04 22:20:00 14 /min Dara ey Seybold - External Body height 2022-01-04 22:20:00 165.1 cm Estelle S eybold - External Body weight 2022-01-04 22:20:00 68.493 kg Estelle S eybold - External BMI 2022-01-04 22:20:00 25.13 kg/m2 Estelle S eybold - External Body height 2021-03-28 14:44:00 165.1 cm Estelle S eybold Body weight 2021-03-28 14:44:00 71.759 kg Estelle S eybold BMI 2021-03-28 14:44:00 26.33 kg/m2 Estelle S eybold Systolic blood 2021-01-10 16:48:00 118 mm[Hg] Estelle Seybold pressure Diastolic blood 2021-01-10 16:48:00 66 mm[Hg] Kelse y Seybold pressure Heart rate 2021-01-10 16:48:00 70 /min Estelle S eybold Body temperature 2021-01-10 16:48:00 37 Janice Dara ey Seybold Respiratory rate 2021-01-10 16:48:00 14 /min Dara ey Seybold Body height 2021-01-10 16:48:00 165.1 cm Estelle S eybold Body weight 2021-01-10 16:48:00 73.936 kg Estelle S eybold BMI 2021-01-10 16:48:00 27.12 kg/m2 Estelle S eybold Systolic blood 2020-12-20 14:37:00 104 mm[Hg] Estelle Seybold pressure Diastolic blood 2020-12-20 14:37:00 70 mm[Hg] Kelse y Seybold pressure Heart rate 2020-12-20 14:37:00 72 /min Estelle S eybold Body temperature 2020-12-20 14:37:00 36.89 Janice Dara ey Seybold Respiratory rate 2020-12-20 14:37:00 12 /min Dara ey Seybold Body height 2020-12-20 14:37:00 165.1 cm Estelle Dupont eybold Body weight 2020-12-20 14:37:00 73.483 kg Estelle Dupont eybold BMI 2020-12-20 14:37:00 26.96 kg/m2 Estelle S eybold Systolic blood 2020-11-19 12:59:00 112 mm[Hg] Estelle Seybold pressure Diastolic blood 2020-11-19 12:59:00 72 mm[Hg] Kelse y Seybold pressure Heart rate 2020-11-19 12:59:00 81 /min Estelle Dupont eybold Body temperature 2020-11-19 12:59:00 36.83 Janice Dara ey Seybold Respiratory rate 2020-11-19 12:59:00 14 /min Dara maloney Seybold Body height 2020-11-19 12:59:00 165.1 cm Estelle Dupont eybold Body weight 2020-11-19 12:59:00 75.569 kg Estelle Dupont eybold BMI 2020-11-19 12:59:00 27.72 kg/m2 Estelle Dupont eybold Oxygen saturation in 2020-11-19 12:59:00 91 /min Estelle Oconnorybazael Arterial blood by Pulse oximetry Procedures Procedure Date / Time Performed Performing Clinician Donavan e YAMILETH 2022-03-15 20:12:50 Sharri Chand ld - External URINALYSIS NONAUTO W/O 2021-01-10 16:57:00 Edwin Palomino y Rebeca SCOPE Encounters Start End Encounter Admission Attending Care Care Encounter Source Date/Time Date/Time Type Type Clinicians Facility Department ID 2022-09-04 2022-09-04 Outpatient ESTELLE PALOMINO [id number] [place] 00:00:00 00:00:00 EDWIN Seybol d 2022-07-31 2022-07-31 Outpatient ESTELLE CATES [id number] [place] 11:10:00 11:10:00 LUIS A Seybol d 2022-06-30 2022-06-30 Outpatient ESTELLE CATES [id number] [place] 00:00:00 00:00:00 LUIS A Seybol d 2022-05-24 2022-05-24 Outpatient ESTELLE SLOAN [id number] [place] 08:45:00 08:45:00 Seybol d 2022-05-17 2022-05-17 Outpatient ESTELLE PALOMINO [id number] [place] 00:00:00 00:00:00 EDWIN Seybol d 2022-05-11 2022-05-11 Outpatient ESTELLE JUÁREZ [id number] [place] 09:55:00 09:55:00 DEISY Seybol d 2022-04-27 2022-04-27 Outpatient 39CORINNA ESTELLE SLOAN [id number] [place] 10:45:00 10:45:00 Seybol d 2022-04-27 2022-04-27 Outpatient ESTELLE CATES [id number] [place] 10:10:00 10:10:00 LUIS A Seybol d 2022-04-27 2022-04-27 Outpatient ESTELLE PALOMINO [id number] [place] 00:00:00 00:00:00 EDWIN Seybol d 2022-04-24 2022-04-24 Outpatient ESTELLE HANNAH [id number] [place] 10:00:00 10:00:00 YOEL Carvajalo ld 2022-04-05 2022-04-05 Outpatient ESTELLE PALOMINO [id number] [place] 13:00:00 13:00:00 EDWIN Seybol d 2022-04-02 2022-04-02 Outpatient FRED ESTELLE ESTELLE [id number] [place] 00:00:00 00:00:00 EDWIN Seybol d 2022-03-31 2022-03-31 Outpatient AMAURY SLOAN ESTELLE [id number] [place] 00:00:00 00:00:00 MD WES Seybol d 2022-03-23 2022-03-23 Outpatient FRED ESTELLE SLOAN [id number] [place] 00:00:00 00:00:00 EDWIN Seybol d 2022-03-22 2022-03-22 Outpatient FRED ESTELLE SLOAN [id number] [place] 00:00:00 00:00:00 EDWIN Seybol d 2022-03-17 2022-03-17 Outpatient LAB90 ESTELLE SLOAN [id number] [place] 09:40:00 09:40:00 Seybol d 2022-03-15 2022-03-15 Outpatient ALEENA ESTELLE SLOAN [id number] [place] 13:45:00 13:45:00 SHARRI Seybol d 2022-03-10 2022-03-10 Outpatient SHAYANLEONOR Jorgensen ESTELLE SLOAN [id number] [place] 08:20:00 08:20:00 Seybol d 2022-03-07 2022-03-07 Outpatient ALEENA ESTELLE SLOAN [id number] [place] 00:00:00 00:00:00 SHARRI Seybol d 2022-03-06 2022-03-06 Outpatient IVY SHANE SLOAN [id number] [place] 10:30:00 10:30:00 Seybol d 2022-03-06 2022-03-06 Outpatient IVY SHANE SLOAN [id number] [place] 08:30:00 08:30:00 Seybol d 2022-03-03 2022-03-03 Outpatient ESTELLE CHAND [id number] [place] 00:00:00 00:00:00 SHARRI Seybol d 2022-03-02 2022-03-02 Outpatient LAB90 ESTELLE SLOAN [id number] [place] 14:55:00 14:55:00 Seybol d 2022-03-02 2022-03-02 Outpatient PREZAS ESTELLE SLOAN [id number] [place] 10:30:00 10:30:00 SHARRI Seybol d 2022-03-01 2022-03-01 Outpatient FRED ESTELLE SLOAN [id number] [place] 00:00:00 00:00:00 EDWIN Seybol d 2022-02-20 2022-02-20 Outpatient FRED, ESTELLE SLOAN [id number] [place] 00:00:00 00:00:00 EDWIN Seybol d 2022-02-10 2022-02-10 Outpatient LAB39 ESTELLE SLOAN [id number] [place] 15:45:00 15:45:00 Seybol d 2022-02-10 2022-02-10 Outpatient HONG, ESTELLE SLOAN [id number] [place] 15:15:00 15:15:00 ISH Seybol d 2022-02-08 2022-02-08 Outpatient FRED ESTELLE SLOAN [id number] [place] 00:00:00 00:00:00 EDWIN Seybol d 2022-01-27 2022-01-27 Outpatient FRED ESTELLE SLOAN [id number] [place] 00:00:00 00:00:00 EDWIN Seybol d 2022-01-16 2022-01-16 Outpatient LAB90 ESTELLE SLOAN [id number] [place] 15:25:00 15:25:00 Seybol d 2022-01-16 2022-01-16 Outpatient LAB90 ESTELLE SLOAN [id number] [place] 14:15:00 14:15:00 Seybol d 2022-01-09 2022-01-09 Outpatient ROSEMARYJavad ESTELLE SLOAN [id number] [place] 00:00:00 00:00:00 EDWIN Seybol d 2022-01-06 2022-01-06 Outpatient ESTELLE SLOAN [id number] [place] 11:15:00 11:15:00 Seybol d 2022-01-06 2022-01-06 Outpatient ESTELLE PARDO [id number] [place] 00:00:00 00:00:00 MUHAMMED Seybo ld 2022-01-06 2022-01-06 Outpatient HUNDL, ESTELLE SLOAN [id number] [place] 00:00:00 00:00:00 EDWIN Seybol d 2022-01-05 2022-01-05 Outpatient HUNDL, ESTELLE SLOAN [id number] [place] 00:00:00 00:00:00 EDWIN Seybol d 2022-01-05 2022-01-05 Outpatient HUNDL, ESTELLE SLOAN [id number] [place] 00:00:00 00:00:00 EDWIN Seybol d 2022-01-05 2022-01-05 Outpatient HUNDL, ESTELLE SLOAN [id number] [place] 00:00:00 00:00:00 EDWIN Seybol d 2022-01-04 2022-01-04 Outpatient LAB90 ESTELLE SLOAN [id number] [place] 17:30:00 17:30:00 Seybol d 2022-01-04 2022-01-04 Outpatient HUNDL, ESTELLE SLOAN [id number] [place] 16:30:00 16:30:00 EDWIN Seybol d 2021-12-19 2021-12-19 Outpatient HUNDL, ESTELLE SLOAN [id number] [place] 11:00:00 11:00:00 EDWIN Seybol d 2021-12-14 2021-12-14 Outpatient HUNDL, ESTELLE SLOAN [id number] [place] 00:00:00 00:00:00 EDWIN Seybol d 2021-12-05 2021-12-05 Outpatient HUNDL, ESTELLE SLOAN [id number] [place] 00:00:00 00:00:00 EDWIN Seybol d 2021-12-05 2021-12-05 Outpatient HUNDL, ESTELLE SLOAN [id number] [place] 00:00:00 00:00:00 EDWIN Seybol d 2021-12-05 2021-12-05 Outpatient HUNDL, ESTELLE SLOAN [id number] [place] 00:00:00 00:00:00 EDWIN Seybol d 2021-11-15 2021-11-15 Outpatient HUNDL, ESTELLE SLOAN [id number] [place] 00:00:00 00:00:00 EDWIN Seybol d 2021-11-14 2021-11-14 Outpatient HUNDL ESTELLE SLOAN [id number] [place] 00:00:00 00:00:00 EDWIN Seybol d 2021-11-14 2021-11-14 Outpatient HUNDJavad ESTELLE SLOAN [id number] [place] 00:00:00 00:00:00 EDWIN Seybol d 2021-09-19 2021-09-19 Outpatient ROSEMARYL ESTELLE SLOAN [id number] [place] 00:00:00 00:00:00 EDWIN Seybol d 2021-09-16 2021-09-16 Outpatient HUNDL ESTELLE SLOAN [id number] [place] 00:00:00 00:00:00 EDWIN Seybol d 2021-09-07 2021-09-07 Outpatient ROSEMARYJavad ESTELLE SLOAN [id number] [place] 00:00:00 00:00:00 EDWIN Seybol d 2021-09-06 2021-09-06 Outpatient FRED ESTELLE SLOAN [id number] [place] 00:00:00 00:00:00 EDWIN Seybol d 2021-08-31 2021-08-31 Outpatient LAB90 ESTELLE SLOAN [id number] [place] 16:00:00 16:00:00 Seybol d 2021-08-31 2021-08-31 Office RosemaryShane kwong 1.2.840.114 [id number] [place] 15:00:00 15:30:00 Visit Edwin Romero 350.1.13.13 Se oliver 1.2.7.2.686 [id number] 2021-08-30 2021-08-30 Outpatient FRED ESTELLE SLOAN [id number] [place] 00:00:00 00:00:00 EDWIN Seybol d 2021-07-13 2021-07-13 Outpatient ESTELLE PETERSEN [id number] [place] 00:00:00 00:00:00 TAWANNA Seybol d 2021-07-07 2021-07-07 Outpatient ESTELLE PETERSEN [id number] [place] 08:30:00 08:30:00 TAWANNA Seybol d 2021-05-24 2021-05-24 Outpatient ESTELLE PALOMINO [id number] [place] 00:00:00 00:00:00 EDWIN de leon 2021-05-03 2021-05-03 Outpatient R JOSÉ PAYENNI [facility] [id number] [facility] 08:00:00 11:17:49 DELLA ity of [facility] 2021-05-03 2021-05-03 Ancillary Moira Marroquin [facility] 1.2.84 0.114 [id number] [facility] 08:00:00 11:17:49 Visit Della Kumar 350.1.13.10 [place] [id number] Nh dical NAL 179 [facility] 2021-05-02 2021-05-02 Ancillary Moira Marroquin [facility] 1.2.84 0.114 [id number] [facility] 13:45:00 14:59:17 Visit Della Kumar 350.1.13.10 [place] [id number] Nh dical NAL 179 [facility] 2021-05-02 2021-05-02 Outpatient ESTELLE PALOMINO [id number] [place] 00:00:00 00:00:00 EDWIN de leon 2021-04-29 2021-04-29 Outpatient ESTELLE PALOMINO [id number] [place] 00:00:00 00:00:00 EDWIN Carvajalol mosies 2021-04-28 2021-04-28 Ancillary Swati Puri [facility] 1.2.840 .114 [id number] [facility] 10:15:00 11:00:00 Visit Della Kumar 350.1.13.10 it[place] [id number] Nh dical NAL 179 [facility] 2021-04-26 2021-04-26 Ancillary Swati Puri [facility] 1.2.840 .114 [id number] [facility] 16:00:00 16:45:00 Visit Della Kumar 350.1.13.10 [place] [id number] Me dical NAL [address] [facility] 2021-04-25 2021-04-25 Outpatient ESTELLE PETERSEN [id number] [place] 14:00:00 14:00:00 TAWANNA Carvajalol d 2021-04-20 2021-04-20 Ancillary Swati Puri [facility] 1.2.840 .114 [id number] [facility] 08:00:00 08:45:00 Visit Della Kumar 350.1.13.10 [place] [id number] Nh dical NAL 179 [facility] 2021-04-19 2021-04-19 Ancillary Martha Villalba [facility] 1.2. 840.114 [id number] [facility] 08:00:00 08:45:00 Visit Della Kumar 350.1.13.10 [place] [id number] Nh dical NAL 179 [facility] 2021-04-17 2021-04-17 Outpatient ESTELLE PALOMINO [id number] [place] 00:00:00 00:00:00 EDWIN Thomas moises 2021-04-14 2021-04-14 Ancillary Moira Marroquin [facility] 1.2.84 0.114 [id number] [facility] 09:30:00 10:15:00 Visit Della Kumar 350.1.13.10 [place] [id number] Me dical NAL [address] [facility] 2021-04-12 2021-04-12 Ancillary Moira Marroquin [facility] 1.2.84 0.114 [id number] [facility] 14:30:00 15:15:00 Visit Della Kumar 350.1.13.10 [place] [id number] Nh dical NAL [address] [facility] 2021-04-06 2021-04-06 Ancillary Moira Marroquin [facility] 1.2.84 0.114 [id number] [facility] 14:30:00 15:15:00 Visit Della Kumar 350.1.13.10 ity [facility] [place] [id number] Nh dical NAL 179 [facility] 2021-04-06 2021-04-06 [facility] [id number] [facility] 14:30:00 14:30:00 DELLA [facility] 2021-04-06 2021-04-06 Outpatient ESTELLE PALOMINO [id number] [place] 00:00:00 00:00:00 EDWIN Seybol d 2021-04-05 2021-04-05 Ancillary Cara Moira Zita [facility] 1.2.84 0.114 [id number] [facility] 14:30:00 16:48:52 Visit Della Kumar 350.1.13.10 [facility] [place] [id number] Nh dical NAL 179 [facility] 2021-04-05 2021-04-05 [facility] [id number] [facility] 14:30:00 16:48:52 [facility] 2021-03-28 2021-03-28 Office CISCO PETERSEN 1.2.840.114 [id number] [place] 09:00:00 09:00:00 Visit TAWANNA 350.1.13.13 Se harriettold 1.2.7.2.686 [id number] 2021-03-22 2021-03-22 Outpatient ESTELLE PALOMINO [id number] [place] 00:00:00 00:00:00 EDWIN Seybol d 2021-03-21 2021-03-21 Outpatient ESTELLE PALOMINO [id number] [place] 00:00:00 00:00:00 EDWIN Seybol d 2021-03-04 2021-03-04 Outpatient ESTELLE PALOMINO [id number] [place] 00:00:00 00:00:00 EDWIN Seybol d 2021-03-01 2021-03-01 Outpatient HUNDL ESTELLE SLOAN [id number] [place] 00:00:00 00:00:00 EDWIN Seybol d 2021-02-23 2021-02-23 Outpatient FRED ESTELLE SLOAN [id number] [place] 00:00:00 00:00:00 EDWIN Seybol d 2021-02-23 2021-02-23 Outpatient FRED ESTELLE SLOAN [id number] [place] 00:00:00 00:00:00 EDWIN Seybol d 2021-02-21 2021-02-21 Outpatient HUNDL ESTELLE SLOAN [id number] [place] 00:00:00 00:00:00 EDWIN Seybol d 2021-02-15 2021-02-15 Telemed[facility] Shane PALOMINO 1.2.840.114 [id number] [place] 16:00:00 16:00:00 ne EDWIN Romero 350.1.13.13 Se azael 1.2.7.2.686 [id number] 2021-02-15 2021-02-15 Outpatient FRED ESTELLE SLOAN [id number] [place] 00:00:00 00:00:00 EDWIN Seybol d 2021-02-10 2021-02-10 Outpatient FRED ESTELLE SLOAN [id number] [place] 00:00:00 00:00:00 EDWIN Seybol d 2021-02-08 2021-02-08 Outpatient FRED ESTELLE SLOAN [id number] [place] 00:00:00 00:00:00 EDWIN Seybol d 2021-02-07 2021-02-07 Outpatient HUNDL ESTELLE SLOAN [id number] [place] 00:00:00 00:00:00 EDWIN Seybol d 2021-02-07 2021-02-07 Outpatient HUNDL ESTELLE SLOAN [id number] [place] 00:00:00 00:00:00 EDWIN Seybol d 2021-02-07 2021-02-07 Outpatient HUNDL ESTELLE SLOAN [id number] [place] 00:00:00 00:00:00 EDWIN Seybol d 2021-02-01 2021-02-01 Outpatient HUNDL, ESTELLE SLOAN [id number] [place] 00:00:00 00:00:00 EDWIN Seybol d 2021-01-26 2021-01-26 Outpatient GROUP, ESTELLE SLOAN [id number] [place] 00:00:00 00:00:00 ESTELLE Seybol d 2021-01-24 2021-01-24 Outpatient HUNDL, ESTELLE SLOAN [id number] [place] 00:00:00 00:00:00 EDWIN Seybol d 2021-01-21 2021-01-21 Outpatient GROUP, ESTELLE SLOAN [id number] [place] 00:00:00 00:00:00 ESTELLE Seybol d 2021-01-14 2021-01-14 Outpatient HUNDL, ESTELLE SLOAN [id number] [place] 00:00:00 00:00:00 EDWIN Seybol d 2021-01-13 2021-01-13 Outpatient HUNDL, ESTELLE SLOAN [id number] [place] 00:00:00 00:00:00 EDWIN Seybol d 2021-01-11 2021-01-11 Outpatient HUNDL, ESTELLE SLOAN [id number] [place] 00:00:00 00:00:00 EDWIN Seybol d 2021-01-11 2021-01-11 Outpatient HUNDL, ESTELLE SLOAN [id number] [place] 00:00:00 00:00:00 EDWIN Seybol d 2021-01-10 2021-01-10 Outpatient LAB90 ESTELLE SLOAN [id number] [place] 11:55:00 11:55:00 Seybol d 2021-01-10 2021-01-10 Office HundShane kwong 1.2.840.114 [id number] [place] 10:46:17 11:16:17 Visit Edwin Romero 350.1.13.13 Se ybold 1.2.7.2.686 [id number] 2021-01-10 2021-01-10 Outpatient HUNDL, ESTELLE SLOAN [id number] [place] 00:00:00 00:00:00 EDWIN Seybol d 2020-12-24 2020-12-24 Outpatient HUNDL, ESTELLE SLOAN [id number] [place] 00:00:00 00:00:00 EDWIN Seybol d 2020-12-23 2020-12-23 Outpatient ESTELLE PALOMINO ESTELLE [id number] [place] 00:00:00 00:00:00 EDWIN Seybol d 2020-12-20 2020-12-20 Outpatient LAB90 ESTELLE SLOAN [id number] [place] 10:45:00 10:45:00 Seybol d 2020-12-20 2020-12-20 Office Shane Palomino 1.2.840.114 [id number] [place] 09:36:18 10:06:18 Visit Edwin Nick 350.1.13.13 harriettazael 1.2.7.2.686 [id number] 2020-12-20 2020-12-20 Outpatient ESTELLE PALOMINO ESTELLE [id number] [place] 00:00:00 00:00:00 EDWIN Seybol d 2020-12-20 2020-12-20 Outpatient FRED ESTELLE SLOAN [id number] [place] 00:00:00 00:00:00 EDWIN Seybol d 2020-11-29 2020-11-29 Outpatient FRED ESTELLE SLOAN [id number] [place] 00:00:00 00:00:00 EDWIN Seybol d 2020-11-28 2020-11-28 Outpatient FRED ESTELLE SLOAN [id number] [place] 00:00:00 00:00:00 EDWIN Seybol d 2020-11-26 2020-11-26 Outpatient FRED ESTELLE SLOAN [id number] [place] 00:00:00 00:00:00 EDWIN Seybol d 2020-11-22 2020-11-22 Outpatient FRED ESTELLE SLOAN [id number] [place] 00:00:00 00:00:00 EDWIN Seybol d 2020-11-19 2020-11-19 Outpatient LAB90 ESTELLE SLOAN [id number] [place] 09:05:00 09:05:00 Seybol d 2020-11-19 2020-11-19 Office Shane Palomino 1.2.840.114 [id number] [place] 07:53:40 08:23:40 Visit Edwin Romero 350.1.13.13 Se oliver 1.2.7.2.686 [id number] Results Test Description Test Time Test Comments Results Result Comments Source [facility] 2022-03-15 20:14:28 Test Item Value Reference Range Interpretation Comme nts [employer] left side (test code 0.91 See_Comment [Automated message] The system = [id number]) which generated this result transmitted ref erence range: 1.40 - 0.90 NA. The re ference range was not used to interpr et this result as normal/abnormal . [employer] right side (test 1.05 See_Comment P resentation Factors: Hypertension, code = 80063-1D) DiabetesExe rcise Modality: At RestNormal - 1. 40 - 1.00Borderline - 0.99 - 0.90Mild - 0.89 - 0.60Moderate - 0.59 - 0.30Severe - 0.29 - 0.00 [Au tomated message] The system which ge nerated this result transmitted ref erence range: 1.40 - 0.90 NA. The re ference range was not used to interpr et this result as normal/abnormal . Estelle Seharriettazael - ExternalURINALYSIS NONAUTO W/O [id number] 16:57:00 Test Item Value Reference Range Interpretation Comments UD KETONES (test code = neg 5-160 883579) UD GLUCOSE (test code = neg 100-2000 384163) UD PROTEIN (test code = neg Trace - 2000 mg/dL 267902) UD LEUKOCYTES (test large Trace - Large @ 2 code = 270270) min. UD NITRITE (test code = neg Neg. - Pos. @ 60 912278) sec. UD UROBILINOGEN (test 0.2 mg/dL 0.2-8 code = 802455) UD PH (test code = See_Comment [Automat ed 734893) message] The sy stem which generated this result transmitted reference range : 5.0 - 8.5 @ 60 sec.. The refer ence range was not u sed to interpret th is result as normal/abnormal . UD BLOOD (test code = trace Neg. - Large @ 60 813031) sec. UD SPECIFIC GRAVITY See_Comment [Automa conrado (test code = 979111) message ] The system which generated this result transmitted reference range : 1.000 - 1.030 @ 45 sec.. The refer ence range was not u sed to interpret th is result as normal/abnormal . UD BILIRUBIN (test code neg Neg. - Large @ 45 = 651739) sec. Lab Interpretation Abnormal (test code = 54683-5) Estelle Jose
--- NOTE | 2022-09-04 12:22 | RAD REPORT ---
EXAM DESCRIPTION: Milli Single View09/04/2022 12:10 pm CLINICAL HISTORY: PAIN COMPARISON: No comparisons TECHNIQUE: Portable AP view of the chest. FINDINGS: The lungs are clear. No pneumothorax or effusion. The cardiomediastinal contours are unre markable. IMPRESSION: No acute cardiopulmonary process.
[2022-09-04 12:25] LABS: Specific Gravity 1.019 (1.005-1.030); Urine Bacteria None Seen /HPF (<20); Urine Bilirubin NEGATIVE (Negative); Urine Blood 1+ (Negative); Urine Clarity Turbid (Clear); Urine Color Light-Yellow (Yellow); Urine Glucose NEGATIVE (Negative); Urine Protein NEGATIVE (Negative); Urine RBC <5 /HPF (None Seen); Urine Urobilinogen Normal (Normal)
[2022-09-04 12:55] LABS: Absolute Lymphocytes (CBC) 0.3 K/uL (0.7-4.9); Hematocrit 41.1 % (36.0-45.0); Lymphocytes % 4.4 % (15.3-44.8); MCV 92.2 fL (80-100); RBC Red Blood Cell Count 4.46 M/uL (3.86-4.86)
[2022-09-04 13:14] LABS: ALT/SGPT 22 U/L (13-56); AST/SGOT 17 U/L (15-37); Albumin 3.9 g/dL (3.4-5.0); Alkaline Phosphatase 112 U/L (45-117); BUN Blood Urea Nitrogen 18 mg/dL (7-18); Bicarbonate 29 mEq/L (21-32); Bilirubin Direct 0.2 mg/dL (0-0.2); Bilirubin Indirect, Calculated 0.4 mg/dL (0.2-0.8); Bilirubin Total 0.6 mg/dL (0.2-1.0); Glomerular Filtration Rate 73 ml/min (=/>90); Glucose Level 101 mg/dL (74-106); Lipase 108 U/L (13-75); Magnesium 2.3 mg/dL (1.6-2.4); NT PRO-BNP 220 pg/mL (<125); Potassium 4.1 mEq/L (3.5-5.1); Protein, Total 7.5 g/dL (6.4-8.2); Sodium Level 138 mEq/L (136-145)
[2022-09-04 13:15] LABS: Troponin High Sensitivity < 3.0 pg/mL (<58.9)
[2022-09-04 13:18] LABS: Protime INR 1.05
[2022-09-04] MEDS ORDERED: FENTANYL CITR 100 MCG/2 ML ONE (13:26)
[2022-09-04] MEDS ORDERED: ONDANSETRON 4 MG/2 ML VIAL ONE (13:26)
--- NOTE | 2022-09-04 13:45 | RAD REPORT ---
EXAM DESCRIPTION: CTAbdomen Pelvis W Contrast - 09/04/2022 1:36 pm CLINICAL HISTORY: ABD PAIN COMPARISON: No comparisons TECHNIQUE: CT of the abdomen and pelvis was performed with IV contrast. All CT scans are performed using dose optimization technique as appropriate and may include automated exposure control or mA/KV adjustment according to patient size. FINDINGS: Lower chest: No acute abnormality. Liver: Low-density lesion in the right hepatic lobe measuring 7 millimeters is likely benign. Biliary: No biliary ductal dilatation. Stomach: No significant focal abnormality. Duodenum: No significant focal abnormality. Pancreas: No significant abnormality. Spleen: No significant abnormality. Adrenal: No suspicious lesions. Kidney/ureter: No hydronephrosis. No renal calculi. Retroperitoneum: No retroperitoneal adenopathy. Vascular: No aneurysm. Bowel: Mucosal hyperenhancement and thickening at distal and terminal ileum. No bowel obstruction dirk ntified. Normal appendix.. Peritoneum: No ascites or free air. Bladder: Grossly unremarkable. Reproductive: No adnexal masses. Bones: No acute fracture. Schmorl's node present at L2. Other: n/a IMPRESSION: Enteritis at the distal ileum likely reflecting infectious or inflammatory etiology. No bowel obstruction. Normal appendix.
[2022-09-04] MEDS ORDERED: METRONIDAZOLE 500mg IVPB 500 MG/100 ML BAG IV ONE (14:23)
[2022-09-04] MEDS ORDERED: CIPROFLOXACIN 400mg IV 400 MG/200 ML BAG IV ONE (14:23)
--- NOTE | 2022-09-04 14:27 | ER ---
Nurse's Notes [facility] Name: Marcelina Stevens Age: 66 yrs Sex: Female : 1955 Arrival Date: 09/04/2022 Time: 11:38 Bed 15 Private MD: Diagnosis: Other viral enteritis;Abdominal pain, unspecified Presentation: 09/04 11:59 Chief complaint: Patient states: BLQ PAIN x3 DAYS. Coronavirus screen: At this time, bp the client does not indicate any symptoms associated with coronavirus-19. Ebola Screen: No symptoms or risks identified at this time. Initial Sepsis Screen: Does the patient meet any 2 criteria? No. Patient's initial sepsis screen is negative. Does the patient have a suspected source of infection? No. Patient's initial sepsis screen is negative. Risk Assessment: Do you want to hurt yourself or someone else? Patient reports no desire to harm self or others. Onset of symptoms is unknown. 11:59 Method Of Arrival: Ambulatory bp 11:59 Acuity: ABDIEL 3 bp Triage Assessment: 11:59 General: Appears uncomfortable, Behavior is calm, cooperative, appropriate for age. bp Pain: Complains of pain in right lower quadrant and left lower quadrant. GI: Reports lower abdominal pain, nausea. Historical: - Allergies: 11:58 No Known Allergies; bp - PMHx: 11:58 Depressive disorder; Diverticulitis; Irritable bowel syndrome; bp - Immunization history:: Adult Immunizations up to date. - Social history:: Smoking status: Patient denies any tobacco usage or history of. Screenin:55 [facility] ED Fall Risk Assessment (Adult) History of falling in the last 3 months, ko1 including since admission No falls in past 3 months (0 pts) Confusion or Disorientation No (0 pts) Intoxicated or Sedated No (0 pts) Impaired Gait No (0 pts) Mobility Assist Device Used No (0 pt) Altered Elimination No (0 pt) Score/Fall Risk Level 0 - 2 = Low Risk Oriented to surroundings, Maintained a safe environment, Educated pt \T\ family on fall prevention, incl call for assistance when getting out of bed, Assessed \T\ reinforced patient's understanding of fall precautions, Provided non-skid footwear, Hourly rounding (assess needs \T\ fall precautionary measures) done, Used ambulatory aids as needed (educated on \T\ assisted with), Used gait belt as appropriate. Abuse screen: Denies threats or abuse. Denies injuries from another. Nutritional screening: No deficits noted. Tuberculosis screening: No symptoms or risk factors identified. Assessment: 13:24 Reassessment: No changes from previously documented assessment. Patient and/or family ll1 updated on plan of care and expected duration. Pain level reassessed. Patient is alert, oriented x 3, equal unlabored respirations, skin warm/dry/pink. Vital Signs: 11:59 BP 114 / 70; Pulse 90; Resp 16; Temp 98.2; Pulse Ox 100% ; bp 13:22 BP 105 / 73; Pulse 87; Resp 18; Pulse Ox 100% ; Pain 10/10; ll1 14:59 BP 115 / 85; Pulse 78; Resp 16; Pulse Ox 99% ; ko1 16:55 BP 112 / 73; Pulse 81; Resp 18; Pulse Ox 99% ; ko1 13:22 Pain Scale: Adult ll1 ED Course: 11:40 Patient arrived in ED. rg4 11:41 Yoseph Melendez MD is Attending Physician. krish 12:01 Triage completed. bp 12:01 Arm band placed on. bp 12:11 XRAY Chest (1 view) In Process Unspecified. EDMS 12:50 Inserted saline lock: 20 gauge in left antecubital area, using aseptic technique. Blood zm collected. 12:50 Initial lab(s) drawn, by me, sent to lab. zm 13:25 Zora Burgos, DIRK is Primary Nurse. ll1 13:38 CT Abd/Pelvis - IV Contrast Only In Process Unspecified. EDMS 13:40 Angelique Ceron, DIRK is Primary Nurse. ko1 14:26 David Hester MD is Referral Physician. krish 16:55 Patient has correct armband on for positive identification. Bed in low position. Call ko1 light in reach. Provided Education on: medications. Client placed on continuous cardiac and pulse oximetry monitoring. NIBP monitoring applied. batch roller operator on. Door closed. Noise minimized. Lights dimmed. Warm blanket given. 16:55 No provider procedures requiring assistance completed. IV discontinued, intact, ko1 bleeding controlled, No redness/swelling at site. Pressure dressing applied. Administered Medications: 13:24 Drug: fentaNYL (PF) IVP 50 mcg {Note: pain 10/10, RASS 0.} Route: IVP; Site: left ll1 antecubital; 13:24 Drug: Ondansetron IVP 4 mg Route: IVP; Site: left antecubital; ll1 14:19 Drug: Ciprofloxacin IVPB 400 mg Volume: 200 ml; Route: IVPB; Infused Over: 60 mins; ko1 Site: left antecubital; 14:33 Drug: MethylPrednisoLONE IVP 125 mg Route: IVP; Site: left antecubital; ko1 14:58 Drug: metroNIDAZOLE IVPB 500 mg Volume: 100 ml; Route: IVPB; Rate: 200 ml/hr; Infused ko1 Over: 30 mins; Site: left antecubital; 14:58 Drug: NS 0.9% IV 1000 ml Route: IV; Rate: 1 bolus; Site: left antecubital; ko1 Medication: 16:55 VIS not applicable for this client. ko1 Outcome: 14:27 Discharge ordered by MD. rutherford 16:55 Discharged to home ambulatory, with family. ko1 16:55 Condition: improved 16:55 Discharge instructions given to patient, family, Instructed on discharge instructions, follow up and referral plans. medication usage, Demonstrated understanding of instructions, follow-up care, medications, Prescriptions given X x5 16:57 Patient left the ED. ko1 Signatures: Dispatcher [employer] EDMS Yoseph Melendez MD MD cha Garcia, Rubi rg4 Angel Kong RN RN bp Lewis, Lynsay, RN RN ll1 Cammy Quinones Kathy, RN RN ko1
--- NOTE | 2022-09-04 14:27 | EDPHYS ---
Physician Documentation [facility] Name: Marcelina Stevens Age: 66 yrs Sex: Female : 1955 Arrival Date: 09/04/2022 Time: 11:38 Bed 15 Private MD: ED Physician Yoseph Melendez HPI: 09/04 14:20 This 66 yrs old Female presents to ER via Ambulatory with complaints of krish Abdominal Pain, Rectal Pain, Nausea. 14:20 The patient presents to the emergency department with pain in the rectal area. krish Modifying factors: The symptoms are alleviated by nothing, The symptoms are aggravated by bowel movement. Historical: - Allergies: 11:58 No Known Allergies; bp - PMHx: 11:58 Depressive disorder; Diverticulitis; Irritable bowel syndrome; bp - Immunization history:: Adult Immunizations up to date. - Social history:: Smoking status: Patient denies any tobacco usage or history of. ROS: 14:21 Constitutional: Negative for fever, chills, and weight loss, Eyes: Negative for injury, krish pain, redness, and discharge, ENT: Negative for injury, pain, and discharge, Neck: Negative for injury, pain, and swelling, Cardiovascular: Negative for chest pain, palpitations, and edema, Respiratory: Negative for shortness of breath, cough, wheezing, and pleuritic chest pain, Back: Negative for injury and pain, : Negative for injury, bleeding, discharge, and swelling, MS/Extremity: Negative for injury and deformity, Skin: Negative for injury, rash, and discoloration, Neuro: Negative for headache, weakness, numbness, tingling, and seizure, Psych: Negative for depression, anxiety, suicide ideation, homicidal ideation, and hallucinations, Allergy/Immunology: Negative for hives, rash, and allergies, Endocrine: Negative for neck swelling, polydipsia, polyuria, polyphagia, and marked weight changes, Hematologic/Lymphatic: Negative for swollen nodes, abnormal bleeding, and unusual bruising. 14:21 Abdomen/GI: Positive for abdominal pain, nausea, abdominal cramps, abdominal distension, rectal pain. Exam: 14:21 Constitutional: This is a well developed, well nourished patient who is awake, alert, krish and in no acute distress. Head/Face: Normocephalic, atraumatic. Eyes: Pupils equal round and reactive to light, extra-ocular motions intact. Lids and lashes normal. Conjunctiva and sclera are non-icteric and not injected. Cornea within normal limits. Periorbital areas with no swelling, redness, or edema. ENT: Nares patent. No nasal discharge, no septal abnormalities noted. Tympanic membranes are normal and external auditory canals are clear. Oropharynx with no redness, swelling, or masses, exudates, or evidence of obstruction, uvula midline. Mucous membranes moist. Neck: Trachea midline, no thyromegaly or masses palpated, and no cervical lymphadenopathy. Supple, full range of motion without nuchal rigidity, or vertebral point tenderness. No Meningismus. Chest/axilla: Normal chest wall appearance and motion. Nontender with no deformity. No lesions are appreciated. Cardiovascular: Regular rate and rhythm with a normal S1 and S2. No gallops, murmurs, or rubs. Normal PMI, no JVD. No pulse deficits. Respiratory: Lungs have equal breath sounds bilaterally, clear to auscultation and percussion. No rales, rhonchi or wheezes noted. No increased work of breathing, no retractions or nasal flaring. Back: No spinal tenderness. No costovertebral tenderness. Full range of motion. Female : Normal external genitalia. Skin: Warm, dry with normal turgor. Normal color with no rashes, no lesions, and no evidence of cellulitis. MS/ Extremity: Pulses equal, no cyanosis. Neurovascular intact. Full, normal range of motion. Neuro: Awake and alert, GCS 15, oriented to person, place, time, and situation. Cranial nerves II-XII grossly intact. Motor strength 5/5 in all extremities. Sensory grossly intact. Cerebellar exam normal. Normal gait. Psych: Awake, alert, with orientation to person, place and time. Behavior, mood, and affect are within normal limits. 14:21 ECG was reviewed by the Attending Physician. 14:21 Abdomen/GI: Inspection: abdomen appears normal, Bowel sounds: normal, Palpation: moderate abdominal tenderness, in the right lower quadrant and left lower quadrant, Liver: no appreciated palpable abnormalities, Hernia: not appreciated. Vital Signs: 11:59 BP 114 / 70; Pulse 90; Resp 16; Temp 98.2; Pulse Ox 100% ; bp 13:22 BP 105 / 73; Pulse 87; Resp 18; Pulse Ox 100% ; Pain 10/10; ll1 14:59 BP 115 / 85; Pulse 78; Resp 16; Pulse Ox 99% ; ko1 16:55 BP 112 / 73; Pulse 81; Resp 18; Pulse Ox 99% ; ko1 13:22 Pain Scale: Adult ll1 MDM: 11:41 Patient medically screened. [facility] 14:23 Differential diagnosis: hemorrhoids, abscess, appendicitis, bowel obstruction, coronary krish artery disease, diverticulitis, gastritis. Data reviewed: vital signs, nurses notes, lab test result(s), EKG, radiologic studies, CT scan. Consideration of Admission/Observation Escalation of care including admission/observation considered. I considered the following discharge prescriptions or medication management in the emergency department Medications were administered in the Emergency Department. See MAR. Test considered but Not performed: Ultrasound no abd usg. Care significantly affected by the following chronic conditions: depressive hx,diverticulitis, irritate bowel. 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 09/04 11:43 Order name: Basic Metabolic Panel; Complete Time: 14:05 [facility] 09/04 11:43 Order name: CBC with Diff; Complete Time: 14:05 [facility] 09/04 11:43 Order name: LFT's; Complete Time: 14:05 [facility] 09/04 11:43 Order name: Magnesium; Complete Time: 14:05 [facility] 09/04 11:43 Order name: NT PRO-BNP; Complete Time: 14:05 [facility] 09/04 11:43 Order name: PT-INR; Complete Time: 14:05 [facility] 09/04 11:43 Order name: Troponin HS; Complete Time: 14:05 [facility] 09/04 11:43 Order name: Lipase; Complete Time: 14:05 [facility] 09/04 11:43 Order name: Urinalysis w/ reflexes; Complete Time: 14:05 [facility] 09/04 11:43 Order name: XRAY Chest (1 view); Complete Time: 14:05 [facility] 09/04 11:43 Order name: CT Abd/Pelvis - IV Contrast Only; Complete Time: 14: [facility] 09/04 11:43 Order name: EKG; Complete Time: 11:43 [facility] 09/04 11:43 Order name: Cardiac monitoring; Complete Time: 13:41 [facility] 09/04 11:43 Order name: EKG - Nurse/Tech; Complete Time: 13:49 [facility] 09/04 11:43 Order name: IV Saline Lock; Complete Time: 12:51 [facility] 09/04 11:43 Order name: Labs collected and sent; Complete Time: 12:51 [facility] 09/04 11:43 Order name: O2 Per Protocol; Complete Time: 13:14 [facility] 09/04 11:43 Order name: O2 Sat Monitoring; Complete Time: 13:14 [facility] EC:21 Rate is 76 beats/min. Rhythm is regular. QRS [place] is Normal. [place] interval is normal. QRS krish interval is normal. QT interval is normal. No Q waves. T waves are Normal. No ST changes noted. Clinical impression: NSR w/ Non-specific ST/T Changes and No evidence of ischemia. Interpreted by me. Reviewed by me. Administered Medications: 13:24 Drug: fentaNYL (PF) IVP 50 mcg {Note: pain 10/10, RASS 0.} Route: IVP; Site: left ll1 antecubital; 13:24 Drug: Ondansetron IVP 4 mg Route: IVP; Site: left antecubital; ll1 14:19 Drug: Ciprofloxacin IVPB 400 mg Volume: 200 ml; Route: IVPB; Infused Over: 60 mins; ko1 Site: left antecubital; 14:33 Drug: MethylPrednisoLONE IVP 125 mg Route: IVP; Site: left antecubital; ko1 14:58 Drug: metroNIDAZOLE IVPB 500 mg Volume: 100 ml; Route: IVPB; Rate: 200 ml/hr; Infused ko1 Over: 30 mins; Site: left antecubital; 14:58 Drug: NS 0.9% IV 1000 ml Route: IV; Rate: 1 bolus; Site: left antecubital; ko1 Disposition Summary: 09/04/22 14:27 Discharge Ordered Location: Home krish Problem: new krish Symptoms: have improved krish Condition: Stable krish Diagnosis - Other viral enteritis krish - Abdominal pain, unspecified krish Followup: krish - With: Private Physician - When: 2 - 3 days - Reason: Recheck today's complaints, Continuance of care, Re-evaluation by your physician Followup: krish - With: David Hester MD - When: 2 - 3 days - Reason: Recheck today's complaints, Re-evaluation by your physician Discharge Instructions: - Discharge Summary Sheet krish - Abdominal Pain, Adult krish - Diet for Irritable Bowel Syndrome krish - Irritable Bowel Syndrome, Adult krish - Nausea and Vomiting, Adult, [id number] krish - Abdominal Pain, Adult, [id number] [facility] Forms: - Medication Reconciliation Form [facility] - Thank You Letter [facility] - Antibiotic Education [facility] - Prescription Opioid Use [facility] - [email or web address] [facility] Prescriptions: - ondansetron 4 mg Oral Tablet,disintegrating - take 1 tablet by ORAL route every 6-8 hours as needed for nausea and vomiting; [facility] 24 tablet; Refills: 0, Product Selection Permitted - Flagyl 500 mg Oral Tablet - take 1 tablet by ORAL route every 8 hours for 7 days; 28 tablet; Refills: 0, [facility] Product Selection Permitted - Cipro 500 mg Oral Tablet - take 1 tablet by ORAL route every 12 hours for 7 days; 14 tablet; Refills: 0, [facility] Product Selection Permitted - Medrol (Sean) 4 mg Oral Tablets, Dose Pack - take 1 tablet by ORAL route as directed - follow package instructions; 1 krish packet; Refills: 0, Product Selection Permitted - dicyclomine 20 mg Oral Tablet - take 1 tablet by ORAL route 4 times per day; 28 tablet; Refills: 0, Product [facility] Selection Permitted Signatures: Dispatcher [employer] Yoseph Anthony MD MD cha Peltier, Brian, RN Zora Turk RN RN ll1 Angelique Ceron RN RN ko1
[2022-09-04 17:53] VITALS: O2SAT 99
[2022-09-04 17:54] VITALS: BP 112/73
[2022-09-04 17:58] VITALS: TEMP 98.6
--- NOTE | 2022-09-05 20:24 | EKG ---
Test Date: 2022-09-04 Test Time: 13:45:22 Jewel Supervisor: ZACH MEASUREMENT RESULTS: Intervals: Rate: 76 SC: 122 QRSD: 74 QT: 386 QTc: 434 [place]: P: -4 SC: 122 QRS: 27 T: 42 INTERPRETIVE STATEMENTS: Normal sinus rhythm Normal ECG Compared to ECG 11/24/2002 14:10:00 No significant changes Electronically Signed On 09-05-22 20:22:29 CDT by Duy Briggs
== END 2022-09-04 16:57 | disposition home or self-care (01) ==
LOC: ER 11:38
DX: A08.39 Other viral enteritis (principal)
CPT/HCPCS: 93005; 85025; 81001; 80048; 36415; 83735; 85610; 80076; 84484; 83690; 83880; 74177; 71045; 96375; 96374; 99285; Q9967; J3010; J2405; J0744